=== PATIENT | male | born 1970 | race Caucasian/White ===

== ENCOUNTER 2020-03-12 13:10 | Emergency (ER) | payer OTHER, SELFPAY ==
[2020-03-12 13:18] VITALS: BP 113/74; PULSE 114; RESP 16; TEMP 37.4; O2SAT 98
--- NOTE | 2020-03-12 13:22 | ED.UPPEXIN ---
HPI - Extremity Injury (Upper) General Chief Complaint: Extremity Injury, Upper Stated Complaint: right elbow pain Time Seen by Provider: 03/12/20 13:30 Source: patient and RN notes reviewed Mode of arrival: ambulatory Limitations: no limitations History of Present Illness HPI narrative: 49-year-old male presents with concern for right elbow pain. Reports pain for approximately 5 weeks. Reports pain started several days after arm wrestling with his children. Reports he had a bad dream, fell out of bed landing on the elbow causing worsening pain. Reports the pain goes down his arm, can be aggravated by gripping and bending his elbow. Reports has been using ibuprofen with some relief. MD complaint: injury to: right and elbow Other Extremity Injury: Right: elbow Review of Systems Review of Systems: Narrative: CONSTITUTIONAL: Denies malaise, chills, sweats, or fever. CARDIOVASCULAR: Denies chest pain, palpitations, or edema. RESPIRATORY: Denies cough or dyspnea. SKIN: Denies swelling or bruising MUSCULOSKELETAL: Reports right elbow pain radiates down the right arm NEUROLOGIC: Denies numbness, weakness. All systems reviewed & are unremarkable except as noted in HPI and below PMFSH Comments At time of signature, agree with nursing past medical, surgical, social and family history. There is no relevant family history pertinent to the presenting complaint Exam Narrative: Exam Narrative: GENERAL: Well-appearing, well-nourished, and in no acute distress. HEAD: Normocephalic, atraumatic. EYES: PERRLA, conjunctivae clear NECK: Supple. CHEST: Speaks in full sentences. No respiratory distress. HEART: Regular rate and rhythm. Normal and equal peripheral pulses. EXTREMITIES: Right elbow has normal strength and sensation, no edema, normal range of motion. 5/5 strength with elbow flexion and extension. Normal sensation with sensitivity to light touch and pain. No open wounds, no skin tenting, no devitalized tissue or atrophy, no trophic changes, no ecchymosis, no obvious deformity, alignment normal, mild lateral elbow tenderness, nearby joints and structures intact. Distal pulses palpable and equal bilaterally, skin warm, dry, pink. Capillary refill less than 3 seconds. SKIN: Warm, dry, no rash. NEURO: Alert and oriented x3. PSYCH: Normal mood and affect Course Course Emergency Course: Patient is aware of diagnosis, understands and agrees to treatment plan. Anticipatory guidance given. Patient agrees to follow-up as directed and is aware of reasons to seek care at the emergency department. Portions of this record may have been created with voice recognition software Vital Signs Vital signs: Vital Signs Temperature 99.3 F 03/12/20 13:18 Pulse Rate 114 H 03/12/20 13:18 Respiratory Rate 16 03/12/20 13:18 Blood Pressure 113/74 03/12/20 13:18 Pulse Oximetry 98 03/12/20 13:18 Temperature 99.3 F 03/12/20 13:18 Pulse Rate 114 H 03/12/20 13:18 Respiratory Rate 16 03/12/20 13:18 Blood Pressure 113/74 03/12/20 13:18 Pulse Oximetry 98 03/12/20 13:18 Reviewed. MDM - Extremity Injury (Upper) MDM Narrative Medical decision making narrative: Patients injury and pain is consistent with musculoskeletal etiology. No signs of neurological or vascular compromise on exam. Compartments and tissues are soft without signs of compartment syndrome. Pain is felt appropriate for further evaluation on an outpatient basis. Critical Care Time Critical Care Time Critical Care Time: No Discharge Plan Discharge Clinical Impression: Epicondylitis, lateral, right Patient Disposition: Home, Self-Care Condition: Stable Instructions: Tennis Elbow (ED) Additional Instructions: Avoid activities that cause pain until the pain subsides. Ice to the area 20-30 minutes 4-6 times a day Tennis elbow strap as directed for 14-21 days Tylenol for lesser pain Ibuprofen regularly for the next 2-3 days for the inflammation Follow up
== END 2020-03-12 13:43 | disposition home or self-care (01) ==
PROVIDERS: Emergency Provider Nurse Practitioner; PCP Internal Medicine
DX: M77.11 Lateral epicondylitis, right elbow (principal)
CPT/HCPCS: 99212; A4565; G0463

== ENCOUNTER 2022-07-16 13:09 | Emergency (ER) | payer OTHER, SELFPAY ==
--- NOTE | ~2022-07-16 | XR_ITS ---
EXAMINATION: XR ribs RT 2V w CXR 2V DATE: 07/16/2022 13:44 INDICATION: Right flank pain. TECHNIQUE: Frontal and lateral views of the chest and 2 views on 4 radiographs of the right ribs were obtained. COMPARISON: None. FINDINGS: CHEST TWO VIEWS: The chest demonstrates clear lungs without pneumonia, pleural effusion, or pneumotho rax. The heart size is normal. RIGHT RIBS: There is no rib fracture. IMPRESSION: 1. No rib fracture. Reviewed, dictated and finalized at location A. IMPRESSION: 1. No rib fracture.
--- NOTE | 2022-07-16 13:19 | ED.BACK ---
HPI - Back Pain/Injury General Chief Complaint: Back Pain/Injury Stated Complaint: Right Flank Pain Time Seen by Provider: 07/16/22 13:12 Source: patient Mode of arrival: ambulatory Limitations: no limitations History of Present Illness HPI Narrative: Mr. Bassett is a 51 year old male patient presenting to the clinic today with c/o rib pain that radiates into his back x 1 week. He denies any known injury. Has non-productive cough. Current tobacco user. No fever, chills, fatigue, or weight loss recently. Pain is sharp and increases when he takes a deep breath. Related Data Allergies Allergy/AdvReac Type Severity Reaction Status Date / Time No Known Allergies Allergy Verified 07/16/22 13:23 Review of Systems Review of Systems: Pertinent positives per HPI. Patient denies any fever, chills, rash, headache, visual changes, dizziness, cough, runny nose, sore throat, shortness of breath, chest pain, palpitations, nausea, vomiting, diarrhea, constipation, abdominal pain, or any urinary issues. PMFSH Comments At the time of my signature, I reviewed and agree with the nursing past medical, surgical, social, and family history. There is no relevant family history pertinent to the patient complaint. Exam Narrative: General: Well-developed, well nourished, in no apparent distress Head: Normocephalic, atraumatic. Chest: Normal appearance, and even rise and fall of chest wall with respirations, no bruising or swelling noted, tender with light palpation over the right anterior, lateral, and posterior ribs just below the nipple line Cardio: Regular rate and rhythm, s1 and s2 normal, no murmur appreciated. Resp: Clear to auscultation bilaterally, no rhonchi, rales, wheezing or rubs. Integumentary: [place], warm, and dry, intact without lesion, no rashes. Course Course Emergency Course: Portions of this record may have been created with voice recognition software. Level of Care: Express Care Visit Vital Signs Vital signs: Vital signs reviewed MDM - Back Pain/Injury MDM Narrative Medical decision making narrative: At the time of visit patient is resting comfortably on the exam table. Chest x-ray with unilateral ribs obtained and was negative for any sign of pneumonia or rib fracture. I suspect the patient has acute chest wall pain. Supportive measures were discussed with the patient he voiced understanding of discharge instructions and agrees to treatment plan. Differential Diagnosis Differential diagnosis: Likely other (Chest wall pain, herpes zoster, rib pain, pleurisy, pneumonia) Imaging Data Radiologist's impression: [facility] [address] [place] [address] XRay Report Signed Patient: Emmanuel Bassett : 1970 MR#: [id number] Age/Sex: 51 / M Acct:[id number] Loc: [facility]? ? ADM Date: 07/16/22Attending Dr: Ordering Physician: Gt Dorsey APRN Date of Service: 07/16/22 Procedure(s): XR ribs RT w PA/LAT CXR Accession Number(s): [id number] cc: Gt Dorsey APRN; Mandie, Emmanuel TORRE~ EXAMINATION: XR ribs RT 2V w CXR 2V DATE: 07/16/2022 13:44 INDICATION: Right flank pain. TECHNIQUE: Frontal and lateral views of the chest and 2 views on 4 radiographs of the right ribs were obtained. COMPARISON: None. FINDINGS: CHEST TWO VIEWS: The chest demonstrates clear lungs without pneumonia, pleural effusion, or pneumothorax. The heart size is normal. RIGHT RIBS: There is no rib fracture. IMPRESSION: 1. No rib fracture. Reviewed, dictated and finalized at location A. Dictated By:? Virgil Archibald MD? 07/16/22 1345 Signed By:? ? <Electronically signed by? Virgil Archibald MD in OV> 07/16/22 1346 Discharge Plan Discharge Clinical Impression: Acute chest wall pain Patient Dispo
[2022-07-16 13:25] VITALS: BP 133/78; PULSE 105; RESP 20; TEMP 37.1; O2SAT 99
== END 2022-07-16 13:55 | disposition home or self-care (01) ==
PROVIDERS: Emergency Provider Nurse Practitioner Family; PCP Physician Assistant
DX: R07.89 Other chest pain (principal); F17.290 Nicotine dependence, other tobacco product, uncomplicated; Z86.16 Personal history of COVID-19
CPT/HCPCS: 71046; 71100; 99213; G0463

== ENCOUNTER 2022-12-08 16:31 | Emergency (ER) | payer OTHER, SELFPAY ==
[2022-12-08 16:36] VITALS: BP 144/93; PULSE 87; RESP 16; TEMP 36.4; O2SAT 98
--- NOTE | 2022-12-08 16:59 | ED.GENADULT ---
HPI - General Adult General Chief complaint: Skin/Abscess/Foreign Body Stated complaint: Skin Sore/Lip Source: patient Mode of arrival: ambulatory Limitations: no limitations History of Present Illness HPI narrative: Patient presents for evaluation of a lesion to the left for approximately 1 month. He states he was cleaning the area with alcohol and had some improvement initially with recurrence thereafter. He states that the lesion is painful. He has never had any herpetic lesions in the past. He smokes 1 pack per day at the present time, down from 2 packs per day. No fever, chills, nausea vomiting, purulence from the affected area. He is wondering if he needs to see a lead investigator. Related Data Allergies Allergy/AdvReac Type Severity Reaction Status Date / Time No Known Allergies Allergy Verified 07/16/22 13:23 Review of Systems Review of Systems: CONSTITUTIONAL: Denies fever, chills, or sweats. EYES: Denies visual changes, redness, or discharge. ENT: Reports painful lesion to the lower lip. Denies rhinorrhea, congestion, sore throat, or otalgia. CARDIOVASCULAR: Denies chest pain, palpitations, or edema. RESPIRATORY: Denies cough or dyspnea. GASTROINTESTINAL: Denies abdominal pain, nausea, vomiting, or diarrhea. GENITOURINARY: Denies dysuria or hematuria. SKIN: Denies rash or itching. MUSCULOSKELETAL: Denies back pain, joint pain, or myalgia. NEUROLOGIC: Denies headache, numbness, dizziness, or weakness. PSYCHIATRIC: Denies anxiety or depression. PMFSH Past Medical History Medical History Tobacco use Surgical History Surgical History No pertinent past surgical history Family History Family History Mother Family history non-contributory Social History Social History Smoking packs per day: 1 Smoking cigarettes per day: 20.0 Smoking status: Current every day smoker Living arrangements: with family Gender identity (if verbalized by the patient): Male Sexual Orientation (if Verbalized by the Patient): Straight or Heterosexual Spiritual care concerns: No Exam Narrative: GENERAL: Well-appearing, well-nourished, and in no acute distress. HEAD: Normocephalic, atraumatic. EYES: PERRLA and EOMI. ENT: Nares clear, no rhinorrhea or epistaxis. Mucous membranes moist. There is a 5 x 2 mm lesion to the lower lip which is somewhat irregularly shaped with black pigmentation noted. Oropharynx without tonsillar hypertrophy exudate. Bilateral TMs pearly llamas nonbulging NECK: Supple. No adenopathy or masses. No carotid bruits or JVD CHEST: Clear to auscultation. No respiratory distress. No wheezes rales or rhonchi HEART: Regular rate and rhythm. No murmur heard. Normal peripheral pulses. ABDOMEN: Soft, nontender, nondistended, normal active bowel sounds. EXTREMITIES: Normal range of motion. No edema. SKIN: Warm, dry, no rash. NEURO: No focal deficits. Alert and oriented x3. PSYCH: Normal mood and affect. Course Course Emergency Course: This is a 51-year-old male who presented for evaluation of a lesion to the lower lip. I am concerned this may be a malignant lesion. I advised he contact his primary care provider to receive referral to see either Dermatology or an oral surgeon to have a biopsy of the lesion. Advised he not smoke. He may take ibuprofen for pain. Follow-up with primary provider. Go to the ER for difficulty breathing or swelling. Patient in agreement with plan care. Level of Care: Express Care Visit Vital Signs Vital signs: Vital Signs Temperature 36.4 C L 12/08/22 16:36 Pulse Rate 87 12/08/22 16:36 Respiratory Rate 16 12/08/22 16:36 Blood Pressure 144/93 H 12/08/22 16:36 Pulse Oximetry 98 12/08/22 16:36 Oxygen Delivery Room Air 12/08/22 16:36 Temperature 36.4 C L 12/08/22
== END 2022-12-08 17:01 | disposition home or self-care (01) ==
PROVIDERS: Emergency Provider Nurse Practitioner; PCP Physician Assistant
DX: K13.0 Diseases of lips (principal); F17.210 Nicotine dependence, cigarettes, uncomplicated
CPT/HCPCS: 99211; G0463

== ENCOUNTER 2023-01-24 14:07 | Emergency (ER) | payer OTHER, SELFPAY ==
--- NOTE | ~2023-01-24 | XR_ITS ---
EXAMINATION: XR chest 2V DATE: 01/24/2023 14:36 INDICATION: Cough TECHNIQUE: PA and lateral views of the chest are obtained. COMPARISON: 07/16/2022 FINDINGS: There are patchy opacities throughout all lung zones, worst in the right midlung zone. No p leural effusion or pneumothorax. The cardiomediastinal silhouette is normal. There is mild thoracic s pondylosis. IMPRESSION: 1. Diffuse lung disease, worst in the right midlung zone, likely multifocal pneumonia. Reviewed, dictated and finalized at location F. IMPRESSION: 1. Diffuse lung disease, worst in the right midlung zone, likely multifocal pne umonia.
[2023-01-24 14:14] VITALS: BP 149/88; PULSE 101; RESP 20; TEMP 37.1; O2SAT 97
--- NOTE | 2023-01-24 15:07 | ED.GENADULT ---
HPI - General Adult General Chief complaint: Upper Respiratory Infection Stated complaint: Cough/Chest Congestion Source: patient Mode of arrival: ambulatory Limitations: no limitations History of Present Illness HPI narrative: PATIENT PRESENTS FOR EVALUATION OF SICK SYMPTOMS FOR LAST 3 DAYS SYMPTOMS INCLUDE COUGH, SHORTNESS OF BREATH, SORE THROAT, PLEURITIC CHEST PAIN, FEVER, FATIGUE, SORE THROAT SECONDARY TO COUGHING, NAUSEA, VOMITING, DIARRHEA. HIS HAS SIMILAR SYMPTOMS AT THE PRESENT TIME. SHE IS TAKING TESSALON PERLES. HE TOOK SOME OF HIS 'S SUPPLY FOR HIS SYMPTOMS. HE TYPICALLY SMOKES ABOUT 1.5 PACKS PER DAY BUT HAS BEEN UNABLE TO SMOKE FOR THE LAST 2 DAYS. I RECENTLY SAW HIM HERE FOR A LIP LESION AND ADVISED TO FOLLOW UP WITH PRIMARY PROVIDER. HE IS SEEING A SURGEON THIS WEEK TO HAVE LESION EXCISED. NO ADDITIONAL COMPLAINTS OR CONCERNS. Related Data Allergies Allergy/AdvReac Type Severity Reaction Status Date / Time No Known Allergies Allergy Verified 01/24/23 14:18 Review of Systems Review of Systems: CONSTITUTIONAL: REPORTS FEVER. DENIES CHILLS, OR SWEATS. EYES: DENIES VISUAL CHANGES, REDNESS, OR DISCHARGE. ENT:REPORTS SORE THROAT. REPORTS LIP LESION. DENIES RHINORRHEA, CONGESTION, OR OTALGIA. CARDIOVASCULAR: REPORTS PLEURITIC CHEST PAIN. DENIES CHEST PAIN OTHERWISE. DENIES PALPITATIONS, OR EDEMA. RESPIRATORY: REPORTS COUGH AND SOB GASTROINTESTINAL: REPORTS NAUSEA, VOMITING AND DIARRHEA. DENIES ABDOMINAL PAIN GENITOURINARY: DENIES DYSURIA OR HEMATURIA. SKIN: DENIES RASH OR ITCHING. MUSCULOSKELETAL: DENIES BACK PAIN, JOINT PAIN, OR MYALGIA. NEUROLOGIC: DENIES HEADACHE, NUMBNESS, DIZZINESS, OR WEAKNESS. PSYCHIATRIC: DENIES ANXIETY OR DEPRESSION. [facility], [facility] Past Medical History Medical History Tobacco use Surgical History Surgical History No pertinent past surgical history Family History Family History Mother Family history non-contributory Social History Social History Smoking packs per day: 1.5 Smoking cigarettes per day: 30.0 Smoking status: Current every day smoker Substance use: never Living arrangements: with family Gender identity (if verbalized by the patient): Male Sexual Orientation (if Verbalized by the Patient): Straight or Heterosexual Spiritual care concerns: No Exam Narrative: GENERAL: WELL-APPEARING, WELL-NOURISHED, AND IN NO ACUTE DISTRESS. HEAD: NORMOCEPHALIC, ATRAUMATIC. EYES: PERRLA AND EOMI. ENT: NARES CLEAR, NO RHINORRHEA OR EPISTAXIS. MUCOUS MEMBRANES MOIST. THERE IS A NECROTIZING LESION TO THE LEFT LOWER LIP. OROPHARYNX WITHOUT TONSILLAR HYPERTROPHY OR EXUDATE. BILATERAL TMS PEARLY MCKINLEY NONBULGING NECK: SUPPLE. NO ADENOPATHY OR MASSES. NO CAROTID BRUITS OR JVD CHEST: COUGH PRESENT ON EXAM. CLEAR TO AUSCULTATION. NO RESPIRATORY DISTRESS. NO WHEEZES RALES OR RHONCHI HEART: REGULAR RATE AND RHYTHM. NO MURMUR HEARD. NORMAL PERIPHERAL PULSES. ABDOMEN: SOFT, NONTENDER, NONDISTENDED, NORMAL ACTIVE BOWEL SOUNDS. EXTREMITIES: NORMAL RANGE OF MOTION. NO EDEMA. SKIN: WARM, DRY, NO RASH. NEURO: NO FOCAL DEFICITS. ALERT AND ORIENTED X3. PSYCH: NORMAL MOOD AND AFFECT. Course Course Emergency Course: THIS IS A 52-YEAR-OLD MALE THAT PRESENTED FOR EVALUATION OF SICK SYMPTOMS. STREP, COVID, INFLUENZA WERE NEGATIVE. CHEST X-RAY CONCERNING FOR PNEUMONIA. SATURATIONS NORMAL SO WE CAN MANAGE HIM OUTPATIENT WITH AZITHROMYCIN, AMOXICILLIN, PREDNISONE, PROAIR, AND MUCINEX. FOLLOW UP THIS WEEK FOR FURTHER EVALUATION AND TREATMENT. GO TO ER FOR WORSENING SYMPTOMS. PT IN AGREEMENT WITH PLAN OF CARE. Level of Care: Express Care Visit Vital Signs Vital signs: Vital Signs Temperature 37.1 C 01/24/23 14:14 Pulse Rate 101 H 01/24/23 14:14 Respiratory Rate 20
== END 2023-01-24 15:10 | disposition home or self-care (01) ==
PROVIDERS: Emergency Provider Nurse Practitioner; PCP Physician Assistant
DX: J18.9 Pneumonia, unspecified organism (principal); Z20.822 Contact with and (suspected) exposure to COVID-19; F17.210 Nicotine dependence, cigarettes, uncomplicated
CPT/HCPCS: 71046; 87081; 87426; 87804; 87880; 99213; C9803; G0463

== ENCOUNTER 2023-01-28 00:58 | Emergency (ER) | payer OTHER, SELFPAY ==
--- NOTE | ~2023-01-28 | XR_ITS ---
Portable chest x-ray Comparison: 01/24/2023 Clinical History: Pneumonia Findings: Right upper lobe pneumonia is improved. No pleural effusion or pneumothorax. Cardiomedias tinal silhouette is stable. Bones and soft tissues are unremarkable. Impression: Marked interval improvement in right upper lobe pneumonia since prior exam. Reviewed, dictated and finalized at location . Impression: Marked interval improvement in right upper lobe pneumonia since prior exam.
--- NOTE | 2023-01-28 01:17 | ED.GENADULT ---
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 the patient appears to have a biopsy of the lower lip with 1.5 cm ulcer. The bleeding was emanating from the ulcer. Firm pressure was applied on the bleeder along with compression of the lower lip following which the bleeding slowed down. Four sutures replaced over the bleeder to control the arterial spurting. The patient is scheduled to see an ENT surgeon for resection of the cancer. -- Nonproductive cough Onset (ago): minute(s) ( started 30 minutes ago) Location: face ( bleeding from the lower lip ulceration) Severity: severe Relieving factors: none Exacerbating factors: none Associated symptoms: cough and shortness of breath Treatments prior to arrival: none Related Data Allergies Allergy/AdvReac Type Severity Reaction Status Date / Time No Known Allergies Allergy Verified 01/28/23 01:19 Review of Systems Review of Systems: All systems reviewed & are unremarkable except as noted in HPI and below Constitutional: Constitutional: Reports as per HPI and Reports no additional constitutional complaints Eyes: Eyes: Reports as per HPI and Reports no additional eye complaints ENT: Reports system reviewed and no additional complaints, except as documented and Reports as per HPI Comments: Patient is very hard of hearing. He normally uses hearing aids. Bleeding from the lower lip ulceration. Cardiovascular: Cardiovascular: Reports as per HPI and Reports no additional cardiovascular complaints Respiratory: Respiratory: Reports as per HPI, Reports cough and Reports dyspnea Gastrointestinal: Gastrointestinal: Reports as per HPI and Reports no additional gastrointestinal complaints Genitourinary: Genitourinary: Reports no additional male genitourinary complaints and Reports as per HPI Musculoskeletal: Musculoskeletal: Reports no additional musculoskeletal complaints and Reports as per HPI Integumentary/Breasts: Skin/Breast: Reports system reviewed and no additional complaints, except as docu and Reports as per HPI Neurologic: Reports system reviewed and no additional complaints, except as documented and Reports as per HPI Psychiatric: Psychiatric: Reports no additional psychiatric complaints and Reports as per HPI Endocrine: Endocrine: Reports no additional endocrine complaints and Reports as per HPI Hematologic/Lymphatic: Hematologic/Lymphatic: Reports no additional hematologic/lymphatic complaints and Reports as per HPI Allergic/Immunologic: Allergic/Immunologic: Reports no additional allergic/immunologic complaints and Reports as per HPI [facility] Past Medical History Medical History Bilateral pneumonia Lip cancer Tobacco use Surgical History Surgical History No pertinent past surgical history Family History Family History Mother Family history non-contributory Social History Social History Smoking packs per day: 1.5 Smoking cigarettes per day: 30.0 Smoking status: Current every day smoker Substance use: never Living arrangements: with family Gender identity (if verbalized by the patient): Male Sexual Orientation (if Verbalized by the Patient): Straight or Heterosexual Spiritual care concerns: No Exam Const: General: ill appearing Orientation/consciousness: patient oriented x3 Limitations: no limitations HENMT: Head: normal to inspection Ears: external ears normal
[2023-01-28 01:19] VITALS: BP 152/96; PULSE 112; RESP 16; TEMP 36.9; O2SAT 95
[2023-01-28 01:40] LABS: Hematocrit 37.9 % (40.0-54.0); Hemoglobin 13.2 g/dL (14.0-18.0); Mean Corpuscular HGB Conc 34.8 g/dL (32.0-36.0); Mean Corpuscular Hemoglobin 31.5 pg (27.0-31.0); Mean Corpuscular Volume 90.5 fL (78.0-102.0); Mean Platelet Volume 8.2 fl (8.7-11.0); Platelet Count Result 448 K/mm3 (150-420); Red Blood Count 4.19 M/mm3 (4.70-6.10); Red Cell Distribution Width 11.9 % (11.6-14.4); White Blood Count 13.5 K/mm3 (4.8-10.8)
[2023-01-28 01:55] LABS: Partial Thromboplastin Time 26.1 SEC (23.90-30.70); Prothrombin Time 11.1 Seconds (9.50-12.10)
[2023-01-28 01:57] LABS: Alanine Aminotransferase 65 U/L (16-63); Albumin Level 2.7 g/dL (3.4-5.0); Alkaline Phosphatase 67 U/L (46-116); Anion Gap 8 mmol/L (8-16); Aspartate Amino Transferase 44 U/L (15-37); Bilirubin,Total 0.2 mg/dL (0.00-1.00); Blood Urea Nitrogen 6 mg/dL (7-18); Calcium 8.6 mg/dL (8.5-10.1); Carbon Dioxide 30 mmol/L (21-32); Chloride 93 mmol/L (98-108); Estimated CRCL calculation 98 ml/min; Estimated Glomerular Filt Rate > 60; Glucose 168 mg/dL (70-99); Osmolality Calculated 273 mOsm/kg (285-295); Potassium 4.5 mmol/L (3.5-5.1); Sodium 131 mmol/L (136-145); Total Protein 7.6 g/dL (6.4-8.2)
[2023-01-28 01:58] LABS: Band Neutrophils Percent 2 % (0-6); Basophils Percent Manual 0 % (0-1); Eosinophils Absolute Manual 0.13 K/mm3 (0.02-0.5); Eosinophils Percent Manual 1 % (1-6); Lymphocytes Absolute Manual 2.97 K/mm3 (1.1-4.5); Lymphocytes Percent Manual 22 % (18-44); Monocytes Absolute Manual 1.35 K/mm3 (0.1-0.90); Monocytes Percent Manual 10 % (3-9); Neutrophils Absolute Manual 9.04 K/mm3 (1.3-6.7); Neutrophils Percent Manual 65 % (46-73); Platelet Estimate Adequate (Adequate); Total Cells Counted 100
[2023-01-28] MEDS: levoFLOXacin 500 MG TABLET 750 MG PO (02:00)
[2023-01-28 02:19] VITALS: BP 111/66; PULSE 91; RESP 18; TEMP 37.1; O2SAT 96
== END 2023-01-28 02:22 | disposition home or self-care (01) ==
PROVIDERS: Emergency Provider Internal Medicine Critical Care Medicine; PCP Physician Assistant
DX: C00.9 Malignant neoplasm of lip, unspecified (principal); J18.9 Pneumonia, unspecified organism; R74.01 Elevation of levels of liver transaminase levels; L98.499 Non-pressure chronic ulcer of skin of other sites with unspecified severity; F17.210 Nicotine dependence, cigarettes, uncomplicated
CPT/HCPCS: 12011; 36415; 71045; 80053; 85025; 85610; 85730; 99283; A9270

== ENCOUNTER 2023-07-31 18:42 | Emergency (ER) | payer OTHER, SELFPAY ==
--- NOTE | ~2023-07-31 | CT_ITS ---
EXAMINATION: CT abdomen pelvis w con DATE: 07/31/2023 19:56 INDICATION: Upper abdominal pain TECHNIQUE: Computed tomography (CT) of the abdomen and pelvis was performed with 100 mL Omnipaque-350 intravenous contrast. Automated exposure control and iterative reconstruction technique were employe d. The dose-length product was 708.68 mGy-cm. COMPARISON: None FINDINGS: Lung bases are clear. Heart size is normal. Small amount of atherosclerotic coronary artery calcific location along the right coronary artery. No pericardial or pleural effusion. Liver, gallbladder, spl een, bilateral adrenal glands and kidneys are normal. Bladder is normal. There is subtle stranding ab out the uncinate process of the pancreas raising concern for acute interstitial pancreatitis. Pancrea s otherwise unremarkable with homogeneous enhancement. No peripancreatic fluid collections. Bowels ar e normal including a normal gas-filled appendix. Prostatomegaly. No free intraperitoneal gas or fluid . No pathologically enlarged abdominal or pelvic lymphadenopathy. Mild scattered degenerative skeleta l changes. IMPRESSION: 1. Subtle stranding about the uncinate process of the pancreas which raise concern for acute intersti tial pancreatitis. Correlate with lipase levels. Reviewed, dictated and finalized at location A. IMPRESSION: 1. Subtle stranding about the uncinate process of the pancreas which raise conc cipriano for acute interstitial pancreatitis. Correlate with lipase levels.
[2023-07-31 18:52] VITALS: BP 153/103; PULSE 104; RESP 18; TEMP 36.4; O2SAT 97
--- NOTE | 2023-07-31 19:04 | ECG_ITS ---
Measurements Intervals [place] Rate: 79 P: 65 [place]: 132 QRS: 72 QRSD: 89 T: 69 QT: 393 QTc: 452 Interpretive Statements SINUS RHYTHM BORDERLINE T WAVE ABNORMALITY- ANTERIOR LEADS BASELINE ARTIFACT- V4-V6 BORDERLINE ECG NO PREVIOUS ECG AVAILABLE FOR COMPARISON Electronically Signed On 08-01-2023 6:58:51 NET DEVELOPER PROGRAMMER by Neto Banegas D.O.
[2023-07-31] MEDS: ONDANSETRON INJ 4 MG/2 ML VIAL IV PUSH (19:11)
[2023-07-31] MEDS: SODIUM CHLORIDE 0.9% IV 1,000 ML 999 ML IV CONT (19:12)
[2023-07-31 19:15] LABS: Basophils Absolute Auto 0.03 K/mm3 (0.00-0.10); Basophils Percent Auto 0.3 % (0.0-1.0); Eosinophils Absolute Auto 0.06 K/mm3 (0.02-0.50); Eosinophils Percent Auto 0.5 % (1.0-6.0); Hematocrit 42.7 % (40.0-54.0); Hemoglobin 14.7 g/dL (14.0-18.0); Immature Granulocyte Absolute 0.05 K/mm3 (0.00-0.00); Immature Granulocyte Percent A 0.4 % (0.0-0.0); Lymphocytes Absolute Auto 2.83 K/mm3 (1.10-4.50); Mean Corpuscular HGB Conc 34.4 g/dL (32.0-36.0); Mean Corpuscular Hemoglobin 32.2 pg (27.0-31.0); Mean Corpuscular Volume 93.6 fL (78.0-102.0); Mean Platelet Volume 8.5 fl (8.7-11.0); Monocytes Absolute Auto 0.97 K/mm3 (0.10-0.90); Monocytes Percent Auto 8.6 % (2.0-11.0); Neutrophils Absolute Auto 7.4 K/mm3 (1.7-7.2); Neutrophils Percent Auto 65.2 % (50.0-70.0); Platelet Count Result 287 K/mm3 (150-420); Red Blood Count 4.56 M/mm3 (4.70-6.10); Red Cell Distribution Width 12.5 % (11.6-14.4); White Blood Count 11.3 K/mm3 (4.8-10.8)
[2023-07-31 19:23] LABS: Appearance Urine Clear (Clear); Bilirubin Urine Negative (Negative); Blood Urine Negative (Negative); Color Urine Light Yellow (Yellow); Glucose Urine UA Negative (Negative); Ketones Urine Negative (Negative); Nitrate Urine Negative (Negative); Protein Urine Negative (Negative); Urobilinogen Urine 0.2 mg/dL (0.2-1.0); pH Urine 7.5 (5.0-8.0)
[2023-07-31] MEDS: KETOROLAC 30 MG/ML VIAL (*BKC) IV PUSH (19:24)
[2023-07-31 19:25] LABS: Leukocyte Esterase Ur Negative LEU/UL (Negative)
[2023-07-31 19:26] LABS: Add Urine Microscopic? NO
[2023-07-31 19:27] LABS: Partial Thromboplastin Time 28.9 SEC (23.90-30.70); Prothrombin Time 10.9 Seconds (9.50-12.10)
[2023-07-31 19:32] LABS: Alanine Aminotransferase 22 U/L (16-63); Albumin Level 3.3 g/dL (3.4-5.0); Alkaline Phosphatase 80 U/L (46-116); Anion Gap 10 mmol/L (8-16); Aspartate Amino Transferase 21 U/L (15-37); Bilirubin,Total 0.3 mg/dL (0.00-1.00); Blood Urea Nitrogen 5 mg/dL (7-18); Calcium 8.7 mg/dL (8.5-10.1); Carbon Dioxide 29 mmol/L (21-32); Chloride 92 mmol/L (98-108); Estimated CRCL calculation 111 ml/min; Estimated Glomerular Filt Rate > 60; Glucose 91 mg/dL (70-99); Lipase 61 U/L (16-77); Osmolality Calculated 269 mOsm/kg (285-295); Sodium 131 mmol/L (136-145); Troponin I 5.8 ng/L (0.00-60.4)
[2023-07-31 19:34] LABS: Lactic Acid Reflex 1.5 mmol/L (0.4-2.0)
[2023-07-31 20:06] VITALS: BP 125/94; PULSE 89; RESP 20; O2SAT 98
--- NOTE | 2023-07-31 20:20 | ED.ABDPAIN ---
HPI - Abdominal Pain General Chief Complaint: Abdominal Pain Stated Complaint: abdominal pain Source: patient Mode of arrival: ambulatory Limitations: no limitations History of Present Illness HPI narrative: patient here today with pain periumbilical but localizes into the left upper quadrant started over the past couple days there is no fever chills does have nausea with no vomiting no diarrhea constipation no flank pain no dysuria or hematuria. Patient does drink Alcohol. MD elicited complaint: abdominal pain Location: periumbilical and LUQ Related Data Allergies Allergy/AdvReac Type Severity Reaction Status Date / Time No Known Allergies Allergy Verified 01/28/23 01:19 Review of Systems Review of Systems: All systems reviewed & are unremarkable except as noted in HPI and below PMFSH Past Medical History Medical History Bilateral pneumonia Lip cancer Tobacco use Surgical History Surgical History No pertinent past surgical history Family History Family History Mother Family history non-contributory Social History Social History Smoking packs per day: 1.5 Smoking cigarettes per day: 30.0 Smoking status: Current every day smoker Substance use: never Living arrangements: with family Gender identity (if verbalized by the patient): Male Sexual Orientation (if Verbalized by the Patient): Straight or Heterosexual Spiritual care concerns: No Exam Const: General: no acute distress Nutritional Appearance: well nourished Orientation/consciousness: patient oriented x3 Limitations: no limitations Eyes: Conjunctivae: conjunctivae normal Pupils: Equal, round and reactive pupils present Neck: Neck: normal visual inspection Chest: Chest palpation & inspection: normal inspection of the chest Resp: Effort & Inspection: normal respiratory effort Auscultation: clear to auscultation bilaterally Cardio: Rate: regular rate Rhythm: regular rhythm GI: GI Palp: Yes Soft to palpation and Yes Tenderness to palpation present (GI) Auscultation: normal bowel sounds : General: Yes bladder normal to palpation Urinary Catheter: Urinary Catheter: patent and draining Back/Spine/Pelvis: Back: no CVA tenderness Skin: General skin exam: normal color Rashes: no rashes Wounds: no wounds Neuro: General: patient oriented x3 and moves all extremities Extrem: General: normal to inspection and no clubbing, cyanosis or edema Psych: Mental Status: mental status grossly normal Affect: normal affect Course Course Emergency Course: Patient blood work reviewed his sodium level was 131, lipase within normal limits, patient's vitals were stable, patient received IV fluids and 30mg IV Toradol his pain level went from a 10 down to a 3. Patient does have a history of alcohol use, with a normal lipase, CT scan shows acute pancreatitis with normal lipase afebrile. Vital Signs Vital signs: Vital Signs Temperature 36.4 C 07/31/23 18:52 Pulse Rate 104 H 07/31/23 18:52 Respiratory Rate 18 07/31/23 18:52 Blood Pressure 153/103 H 07/31/23 18:52 Pulse Oximetry 97 07/31/23 18:52 Oxygen Delivery Room Air 07/31/23 18:52 Temperature 36.4 C 07/31/23 18:52 Pulse Rate 89 07/31/23 20:06 Respiratory Rate 20 07/31/23 20:06 Blood Pressure 125/94 H 07/31/23 20:06 Pulse Oximetry 98 07/31/23 20:06 Oxygen Delivery Room Air 07/31/23 20:06 MDM - Abdominal Pain Lab Data 07/31/23 19:10 07/31/23 19:10 Labs: Lab Results 07/31/23 07/31/23 Range/Units 19:10 19:15 WBC 11.3 H (4.8-10.8) K/mm3 RBC 4.56 L (4.70-6.10) M/mm3 Hgb 14.7 (14.0-18.0) g/dL Hct 42.7 (40.0-54.0) % MCV 93.6 (78.0-102.0) fL MCH 32.2 H (27.0-31.0) pg MCHC 34.4 (32.0-36.0) g/dL RDW
[2023-07-31 20:48] VITALS: BP 144/98; PULSE 88; RESP 18; TEMP 36.8; O2SAT 97
== END 2023-07-31 20:48 | disposition home or self-care (01) ==
PROVIDERS: Emergency Provider Emergency Medicine; PCP Physician Assistant
DX: K85.90 Acute pancreatitis without necrosis or infection, unspecified (principal)
CPT/HCPCS: 36415; 74177; 80053; 81003; 83605; 83690; 84484; 85025; 85610; 85730; 93005; 96361; 96374; 96375; 99284; J1885; J2405; J7030; Q9967

== ENCOUNTER 2024-01-02 22:13 | Emergency (ER) | payer BC, OTHER, SELFPAY ==
[2024-01-02] VITALS (10 sets, daily range): BP systolic 126–144; BP diastolic 84–93; PULSE 87–92; RESP 14–23; TEMP 36.9; O2SAT 98
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
--- NOTE | 2024-01-02 22:25 | ECG_ITS ---
Measurements Intervals [place] Rate: 84 P: 62 LA: 137 QRS: 69 QRSD: 94 T: 75 QT: 365 AVG RR: 712 QTc: 406 QTCB: 432 QTCF: 408 Interpretive Statements SINUS RHYTHM NORMAL ECG SEE SCANNED COPY FOR SIGNATURE MTDD
--- NOTE | 2024-01-02 22:27 | ED.CHESTPAIN ---
HPI - Chest Pain General Chief Complaint: Chest Pain Stated Complaint: kidney pain;chest pain Time Seen by Provider: 01/02/24 22:19 Source: patient Mode of arrival: ambulatory Limitations: no limitations History of Present Illness HPI narrative: Patient is a 53-year-old male with some right-sided chest pain that is sharp in nature this evening as well as some lower back pain that is been bothering him for over a month. complaint: chest pain Onset (ago): day(s) (1) Timing of current episode: episodic Prior episodes: No Onset: during rest and during exertion Pain location: right chest Pain radiation: none Severity: mild Pain scale (0-10): 2 Quality: sharp Relieving factors: rest Exacerbating factors: palpation and movement Associated symptoms: other ( More of his complaint this evening was lumbar back pain for the past month) Risk Factors Coronary artery disease risk factors: none Thoracic aortic dissection risk factors: none Related Data Allergies Allergy/AdvReac Type Severity Reaction Status Date / Time No Known Allergies Allergy Verified 01/28/23 01:19 Review of Systems Review of Systems: All systems reviewed & are unremarkable except as noted in HPI and below Constitutional: Constitutional: Reports no additional constitutional complaints Eyes: Eyes: Reports no additional eye complaints ENT: Reports system reviewed and no additional complaints, except as documented Cardiovascular: Cardiovascular: Reports no additional cardiovascular complaints Respiratory: Respiratory: Reports no additional respiratory complaints Gastrointestinal: Gastrointestinal: Reports no additional gastrointestinal complaints Genitourinary: Genitourinary: Reports no additional male genitourinary complaints Musculoskeletal: Musculoskeletal: Reports no additional musculoskeletal complaints Integumentary/Breasts: Skin/Breast: Reports system reviewed and no additional complaints, except as docu Neurologic: Reports system reviewed and no additional complaints, except as documented Psychiatric: Psychiatric: Reports no additional psychiatric complaints Endocrine: Endocrine: Reports no additional endocrine complaints Hematologic/Lymphatic: Hematologic/Lymphatic: Reports no additional hematologic/lymphatic complaints Allergic/Immunologic: Allergic/Immunologic: Reports no additional allergic/immunologic complaints PMFSH Past Medical History Medical History Bilateral pneumonia Lip cancer Tobacco use Surgical History Surgical History No pertinent past surgical history Family History Family History Mother Family history non-contributory Social History Social History Smoking packs per day: 1.5 Smoking cigarettes per day: 30.0 Smoking status: Current every day smoker Substance use: never Living arrangements: with family Gender identity (if verbalized by the patient): Male Sexual Orientation (if Verbalized by the Patient): Straight or Heterosexual Spiritual care concerns: No Exam Const: General: healthy appearing Nutritional Appearance: well nourished Orientation/consciousness: patient oriented x3 HENMT: Head: normal to inspection Ears: external ears normal Face/Nose/Sinus: Normal external nose present Eyes: Conjunctivae: conjunctivae normal Pupils: Equal, round and reactive pupils present EOM: EOMs intact bilaterally Neck: Neck: normal visual inspection Chest: Chest palpation & inspection: normal inspection of the chest Resp: Effort & Inspection: normal respiratory effort and not labored Auscultation: clear to auscultation bilaterally and no crackles Cardio: Rate: regular rate Rhythm: regular rhythm Heart sounds: no murmurs Other: tender anterior chest wall to palpation GI: Inspection: non-distended Auscultation: norm
[2024-01-02 22:35] LABS: Basophils Absolute Auto 0.03 K/mm3 (0.00-0.10); Basophils Percent Auto 0.4 % (0.0-1.0); Eosinophils Absolute Auto 0.17 K/mm3 (0.02-0.50); Eosinophils Percent Auto 2.2 % (1.0-6.0); Immature Granulocyte Absolute 0.02 K/mm3 (0.00-0.00); Immature Granulocyte Percent A 0.3 % (0.0-0.0); Lymphocytes Absolute Auto 2.81 K/mm3 (1.10-4.50); Lymphocytes Percent Auto 36.7 % (18.0-42.0); Mean Corpuscular HGB Conc 34.2 g/dL (32-36); Mean Corpuscular Hemoglobin 31.7 pg (27.0-31.0); Mean Corpuscular Volume 92.7 fL (78.0-102.0); Mean Platelet Volume 8.4 fl (8.7-11.0); Monocytes Absolute Auto 0.74 K/mm3 (0.10-0.90); Monocytes Percent Auto 9.7 % (2.0-11.0); Neutrophils Absolute Auto 3.89 K/mm3 (1.70-7.20); Neutrophils Percent Auto 50.7 % (50.0-70.0); Platelet Count Result 276 K/mm3 (150-420); Red Cell Distribution Width 12.5 % (11.6-14.4); White Blood Count 7.7 K/mm3 (4.8-10.8)
[2024-01-02 22:49] LABS: D Dimer 0.25 mg/L (0.19-0.50); Partial Thromboplastin Time 26.7 Sec (23.9-30.70); Prothrombin Time 10.6 Seconds (9.50-12.1)
[2024-01-02 23:01] LABS: Alanine Aminotransferase 31 U/L (16-63); Albumin Level 3.5 g/dL (3.4-5.0); Alkaline Phosphatase 54 U/L (46-116); Anion Gap 11 mmol/L (4-12); Aspartate Amino Transferase 28 U/L (15-37); Bilirubin,Total 0.3 mg/dL (0.00-1.00); Blood Urea Nitrogen 9 mg/dL (7-18); Carbon Dioxide 26 mmol/L (21-32); Chloride 96 mmol/L (98-108); Estimated CRCL calculation 100 ml/min; Estimated Glomerular Filt Rate > 60; Glucose 87 mg/dL (70-99); NT Pro B Type Natriuretic Pept 34 pg/mL (0-125); Osmolality Calculated 273 mOsm/kg (285-295); Potassium 4.2 mmol/L (3.5-5.1); Sodium 133 mmol/L (136-145); Total Protein 6.7 g/dL (6.4-8.2)
[2024-01-02 23:02] LABS: Lipase 64 U/L (16-77); Troponin I 5.3 ng/L (0.00-60.4)
[2024-01-02] MEDS: KETOROLAC 30 MG/ML VIAL (*BKC) IV PUSH (23:39)
[2024-01-02] MEDS: ORPHENADRINE CITRATE 30 MG/ML 2 ML VIAL 60 MG IM (23:40)
[2024-01-03 00:04] VITALS: BP 135/86; PULSE 75; RESP 18; TEMP 36.8; O2SAT 98
== END 2024-01-03 00:04 | disposition home or self-care (01) ==
PROVIDERS: Emergency Provider Emergency Medicine; PCP Physician Assistant
DX: R07.89 Other chest pain (principal); M54.50 Low back pain, unspecified; F17.210 Nicotine dependence, cigarettes, uncomplicated
CPT/HCPCS: 36415; 71045; 80053; 83690; 83880; 84484; 85025; 85380; 85610; 85730; 93005; 96372; 96374; 99284; J1885; J2360

== ENCOUNTER 2024-02-26 14:13 | Emergency (ER) | payer BC, OTHER, SELFPAY ==
[2024-02-26] VITALS (10 sets, daily range): BP systolic 138–158; BP diastolic 97–101; PULSE 67–76; RESP 13–20; TEMP 36.3; O2SAT 97–99
--- NOTE | 2024-02-26 14:21 | ECG_ITS ---
[address] Test Date: 2024-02-26 Pat Name: Emmanuel Bassett Department: Room: Gender: Gerontology Aide: : 1970 Requested By: Rashard Krueger Order Number: [id number] Reading MD: Cash Moss M.D. Measurements Intervals [place] Rate: 69 P: 64 DC: 135 QRS: 69 QRSD: 89 T: 72 QT: 382 QTc: 410 Interpretive Statements SINUS RHYTHM No previous ECG available for comparison Electronically Signed On 02-27-2024 12:04:01 CDT by Cash Moss M.D.
--- NOTE | 2024-02-26 14:22 | ED.ABDPAIN ---
HPI - Abdominal Pain General Chief Complaint: Chest Pain Stated Complaint: abdominal pain Time Seen by Provider: 02/26/24 14:22 Source: patient Mode of arrival: ambulatory Limitations: no limitations History of Present Illness HPI narrative: 53-year-old male, with a history of smoking, alcoholism, the cancer status post resection, chronic low back pain pancreatitis presents to the ER with an 8 hour history of -- epigastric pain which radiates to the back. Pain is rated 9/10. No exacerbating or relieving factors -- nausea without any vomiting. No diarrhea. No fever or chills patient had a couple of Alcoholic drinks today. -- erythematous macules in bilateral lower extremities MD elicited complaint: abdominal pain Pertinent past history: other ( pancreatitis) Onset (ago): hour(s) ( 8 hours) Pain Consistency: constant Location: epigastric Severity: severe Quality: aching Radiation: back Migration to: no migration Exacerbating factors: nothing Relieving factors: nothing Associated symptoms: denies other symptoms and nausea Related Data Allergies Allergy/AdvReac Type Severity Reaction Status Date / Time No Known Allergies Allergy Verified 01/28/23 01:19 Review of Systems Review of Systems: All systems reviewed & are unremarkable except as noted in HPI and below Constitutional: Constitutional: Reports as per HPI and Reports no additional constitutional complaints Eyes: Eyes: Reports as per HPI and Reports no additional eye complaints ENT: Reports system reviewed and no additional complaints, except as documented and Reports as per HPI Cardiovascular: Cardiovascular: Reports as per HPI and Reports no additional cardiovascular complaints Respiratory: Respiratory: Reports as per HPI and Reports no additional respiratory complaints Gastrointestinal: Gastrointestinal: Reports as per HPI and Reports no additional gastrointestinal complaints Comments: epigastric pain which radiates to the back nausea without any vomiting or diarrhea. Genitourinary: Genitourinary: Reports no additional male genitourinary complaints and Reports as per HPI Musculoskeletal: Musculoskeletal: Reports no additional musculoskeletal complaints and Reports as per HPI Integumentary/Breasts: Skin/Breast: Reports system reviewed and no additional complaints, except as docu and Reports as per HPI Neurologic: Reports system reviewed and no additional complaints, except as documented and Reports as per HPI Psychiatric: Psychiatric: Reports no additional psychiatric complaints and Reports as per HPI Endocrine: Endocrine: Reports no additional endocrine complaints and Reports as per HPI Hematologic/Lymphatic: Hematologic/Lymphatic: Reports no additional hematologic/lymphatic complaints and Reports as per HPI Allergic/Immunologic: Allergic/Immunologic: Reports no additional allergic/immunologic complaints and Reports as per HPI PMFSH Past Medical History Medical History Bilateral pneumonia Lip cancer Tobacco use Surgical History Surgical History No pertinent past surgical history Family History Family History Mother Family history non-contributory Social History Social History Smoking packs per day: 1.5 Smoking cigarettes per day: 30.0 Smoking status: Current every day smoker Substance use: never Living arrangements: with family Gender identity (if verbalized by the patient): Male Sexual Orientation (if Verbalized by the Patient): Straight or Heterosexual Spiritual care concerns: No Exam Narrative: blood pressure 158/97 Const: General: no acute distress Nutritional Appearance: well nourished Orientation/consciousness: patient oriented x3 Limitations: no limitations HENMT: Head: normal to inspection Ears: external ears normal Fa
[2024-02-26 15:07] LABS: Basophils Absolute Auto 0.03 K/mm3 (0.00-0.10); Basophils Percent Auto 0.3 % (0.0-1.0); Eosinophils Absolute Auto 0.06 K/mm3 (0.02-0.50); Eosinophils Percent Auto 0.7 % (1.0-6.0); Hematocrit 40.8 % (40.0-54.0); Hemoglobin 13.7 g/dL (14.0-18.0); Immature Granulocyte Absolute 0.03 K/mm3 (0.00-0.00); Immature Granulocyte Percent A 0.3 % (0.0-0.0); Lymphocytes Absolute Auto 1.46 K/mm3 (1.10-4.50); Lymphocytes Percent Auto 16.8 % (18.0-42.0); Mean Corpuscular HGB Conc 33.6 g/dL (32-36); Mean Corpuscular Hemoglobin 30.9 pg (27.0-31.0); Mean Corpuscular Volume 92.1 fL (78.0-102.0); Mean Platelet Volume 8.4 fl (8.7-11.0); Monocytes Absolute Auto 0.74 K/mm3 (0.10-0.90); Monocytes Percent Auto 8.5 % (2.0-11.0); Neutrophils Absolute Auto 6.35 K/mm3 (1.70-7.20); Neutrophils Percent Auto 73.4 % (50.0-70.0); Platelet Count Result 261 K/mm3 (150-420); Red Blood Count 4.43 M/mm3 (4.70-6.10); Red Cell Distribution Width 11.6 % (11.6-14.4); White Blood Count 8.7 K/mm3 (4.8-10.8)
[2024-02-26 15:21] LABS: Partial Thromboplastin Time 26.8 Sec (23.9-30.70)
[2024-02-26 15:23] LABS: Alanine Aminotransferase 26 U/L (16-63); Albumin Level 3.5 g/dL (3.4-5.0); Alkaline Phosphatase 60 U/L (46-116); Anion Gap 12 mmol/L (4-12); Aspartate Amino Transferase 22 U/L (15-37); Bilirubin,Total 0.2 mg/dL (0.00-1.00); Blood Urea Nitrogen 8 mg/dL (7-18); Calcium 8.4 mg/dL (8.5-10.1); Carbon Dioxide 25 mmol/L (21-32); Chloride 95 mmol/L (98-108); Estimated CRCL calculation 117 ml/min; Estimated Glomerular Filt Rate > 60; Glucose 100 mg/dL (70-99); Lipase 33 U/L (16-77); Osmolality Calculated 272 mOsm/kg (285-295); Potassium 4.5 mmol/L (3.5-5.1); Sodium 132 mmol/L (136-145); Total Protein 7.2 g/dL (6.4-8.2)
[2024-02-26 15:24] LABS: Troponin I < 4.0 ng/L (0.00-60.4)
[2024-02-26 15:26] LABS: Lactic Acid Reflex 1.2 mmol/L (0.4-2.0)
[2024-02-26] MEDS: PANTOPRAZOLE 40 MG TABLET PO (15:53)
== END 2024-02-26 15:57 | disposition home or self-care (01) ==
PROVIDERS: Emergency Provider Internal Medicine Critical Care Medicine; PCP Physician Assistant
DX: K27.9 Peptic ulcer, site unspecified, unspecified as acute or chronic, without hemorrhage or perforation (principal); F17.210 Nicotine dependence, cigarettes, uncomplicated
CPT/HCPCS: 36415; 80053; 83605; 83690; 84484; 85025; 85730; 93005; 99283; A9270

== ENCOUNTER 2024-06-19 16:20 | Emergency (ER) | payer BC, OTHER, SELFPAY ==
[2024-06-19 16:26] VITALS: BP 130/77; PULSE 80; RESP 20; TEMP 36.7; O2SAT 95
--- NOTE | 2024-06-19 17:17 | ED.URI ---
HPI - URI/Sore Throat General Chief Complaint: Upper Respiratory Infection Stated Complaint: cough/sob Time Seen by Provider: 06/19/24 17:18 Source: patient Mode of arrival: ambulatory Limitations: no limitations History of Present Illness HPI Narrative: 53-year-old male presented for complaint of cough, shortness of breath and wheezing, nasal congestion, and subjective fever for 2 days. Taking Dayquil for symptoms. Denies chest pain, palpitations, n/v/d. Former smoker, quit 1 year. Related Data Allergies Allergy/AdvReac Type Severity Reaction Status Date / Time No Known Allergies Allergy Verified 01/28/23 01:19 Review of Systems Review of Systems: CONSTITUTIONAL: reports fever, chills EYES: Denies visual changes, redness, or discharge. ENT: Reports rhinorrhea, congestion, Denies sore throat, or otalgia. CARDIOVASCULAR: Denies chest pain, palpitations, or edema. RESPIRATORY: Reports cough, sob, wheezing. GASTROINTESTINAL: Denies abdominal pain, nausea, vomiting, or diarrhea. SKIN: Denies rash, itching, or wounds. MUSCULOSKELETAL: Denies back pain, joint pain, or myalgia. NEUROLOGIC: Denies headache, numbness, tingling, or weakness. All systems reviewed & are unremarkable except as noted in HPI and below PMFSH Past Medical History Medical History Bilateral pneumonia Lip cancer Tobacco use Surgical History Surgical History No pertinent past surgical history Family History Family History Mother Family history non-contributory Social History Social History Smoking packs per day: 1.5 Smoking cigarettes per day: 30.0 Smoking status: Current every day smoker Substance use: never Living arrangements: with family Gender identity (if verbalized by the patient): Male Sexual Orientation (if Verbalized by the Patient): Straight or Heterosexual Spiritual care concerns: No Comments At time of signature, I have reviewed and agree with nursing past medical, surgical, social and family history unless otherwise noted. Please see nursing chart for further information. There is no relevant family history pertinent to the presenting complaint Exam Narrative: GENERAL: Well-appearing, in no acute distress. EYES: EOMI. No redness or drainage. Conjunctivae normal. ENT: Mucous membranes pink and moist. No rhinorrhea. TMs normal bilaterally. Throat normal. Uvula midline. NECK: Normal AROM. Supple. CHEST: No respiratory distress. Wheezing to all [place]. HEART: Regular rate and rhythm. No murmur appreciated. ABDOMEN: Soft, nontender, nondistended, normal active bowel sounds. EXTREMITIES: Normal range of motion. No edema. SKIN: Warm, dry, no rash. Capillary refill normal. Normal skin turgor. NEURO: Alert and oriented x3. Gait steady. PSYCH: Normal affect. Course Course Emergency Course: Patient is aware of diagnosis, understands and agrees to treatment plan. Anticipatory guidance given. Patient agrees to follow-up as directed and is aware of reasons to seek care at the emergency department. Portions of this record may have been created with voice recognition software Level of Care: Express Care Visit Vital Signs Vital signs: Vital Signs Temperature 98.0 F 06/19/24 16:26 Pulse Rate 80 06/19/24 16:26 Respiratory Rate 20 06/19/24 16:26 Blood Pressure 130/77 06/19/24 16:26 Pulse Oximetry 95 06/19/24 16:26 Oxygen Delivery Room Air 06/19/24 16:26 Temperature 98.0 F 06/19/24 16:26 Pulse Rate 80 06/19/24 16:26 Respiratory Rate 20 06/19/24 16:26 Blood Pressure 130/77 06/19/24 16:26 Pulse Oximetry 95 06/19/24 16:26 Oxygen Delivery Room Air 06/19/24 16:26 MDM - URI/Sore Throat MDM Narrative Medical decision making narrative: Discussed physical exam findings c/w bron
== END 2024-06-19 17:31 | disposition home or self-care (01) ==
PROVIDERS: Emergency Provider Nurse Practitioner Family; PCP Physician Assistant
DX: J40 Bronchitis, not specified as acute or chronic (principal); F17.210 Nicotine dependence, cigarettes, uncomplicated
CPT/HCPCS: 99211; G0463

== ENCOUNTER 2024-11-18 23:50 | Emergency (ER) | payer SELFPAY ==
--- OUTSIDE RECORDS SUMMARY | 2024-11-18 23:52 | XMS_ITS | Clinical Summary ---
Author Organization [facility] Address [address] [place] [address] Phone Care Team Providers Care Operations Accountant Name Role Phone Provider, Unknown Primary Care Provider Unavaila ble Allergies No known active allergies Medications promethazine-dex tromethorphan (PROMETHAZINE-DM ) 6.25-15 MG/5ML SyrupIndications :Cough Take 5 mL by mouth every 4 hours as needed for Cough. 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 Gender Identity Not on file Sexual Orientation Not on file Last Filed Vital Signs Vital Sign Reading Time Taken Comments Blood Pressure 122/58 11/19/2019 11:24 AM ELEVATOR CONSTRUCTOR HELPER Pulse 91 11/19/2019 11:24 AM ELEVATOR CONSTRUCTOR HELPER Temperature 36.7 C (98 F) 11/19/2019 11:24 AM ELEVATOR CONSTRUCTOR HELPER Respiratory Rate 20 11/19/2019 11:24 AM ELEVATOR CONSTRUCTOR HELPER Oxygen Saturation 97% 11/19/2019 11:24 AM ELEVATOR CONSTRUCTOR HELPER Inhaled Oxygen Concentration - - Weight 85.7 kg (189 lb) 11/19/2019 11:24 AM ELEVATOR CONSTRUCTOR HELPER Height 177.8 cm (5' 10 ) 11/19/2019 11:24 AM ELEVATOR CONSTRUCTOR HELPER Body Mass Index 27.12 11/19/2019 11:24 AM ELEVATOR CONSTRUCTOR HELPER Plan of Treatment Health Maintenance Due Date Last Done Comments Hepatitis C Virus (HCV) Screening 1970 TdaP Immunization 1970 Hepatitis B Immunization (1 of 3 - 19+ 3-dose series) 1988 Colonoscopy 2014 Colorectal Cancer Screening 2014 Cologuard 12/16/2019 Immunochemical Fecal Occult Blood 12/16/2019 Pneumococcal Immunization (5 0+ years) (1 of 1 - PCV) 12/16/2019 Zoster Immunization (1 of 2) 12/16/2019 Influenza Immunization (#1) 2024 SARS-COV-2 Immunization (4 - 2023- season) 2024 07/28/2021, 01/19/2021, 12/22/2020 Respiratory Syncytial Virus (RSV) Immunization (Adult) (1 - 1-dose 75+ series) 2044 Meningococcal Immunization (ACWY) Aged Out No longer eligible b ased on patient's age to complete this topic Pneumococcal Immunization Combined Aged Out No longer eligible b ased on patient's age to complete this topic Rotavirus Immunization Aged Out No lo nger eligible based on patient's age to complete this topic Insurance MEDICAID [place] Care Teams Operations Accountant Relationship Specialty Start Date End Date Provider, Unknown UNKNOWN PCP - General 11/19/19
--- OUTSIDE RECORDS SUMMARY | 2024-11-18 23:52 | XMS_ITS | Data Portability ---
Author Organization [facility] Address [address] [place] [address] Care Team Providers Care Canvas Cutter Name Role Phone CARMELITA LOCKWOOD Primary Care Provider Assessment No assessment recorded. Plan of Treatment Reminders Order Date Submit Date Provider Last Modified By Organization Details Last Modified Time Details Appointments None recorde d. Lab None recorde d. Referral otolary ngologi st referra l 2022 023 [facility]), [address] [facility], [facility], [place], [address], 3 15:25:12 dermato logist referra l 2022 023 [facility], [address] , [place], [address], 3 16:19:06 Procedures None recorde d. Surgeries None recorde d. Imaging XR, lumbar spine - hx of oral cancer 2023 024 [facility], [address] [facility] , [place], [address], 4 16:31:52 Medication Orders None recorde d. Patient TargetsNo targets recorded. Patient Instructions Encounter Date Encounter Id Patient Instructions Last Modified By Organization Details Last Modified Time 08/13/2023 [id number] A healthy lifestyle: care instructions jnanney Not available 08/13/2023 17:32:20 pancreatitis: care instructions jnanney Not available 08/13/2023 17:32:20 01/04/2024 [id number] A healthy lifestyle: care instructions jnanney Not available 01/04/2024 17:18:15 02/22/2024 [id number] A healthy lifestyle: care instructions jnanney Not available 02/22/2024 17:26:08 back care and preventing injuries: care instructions jnanney Not available 02/22/2024 17:26:08 head and neck cancer: care instructions jnanney Not available 02/22/2024 17:28:11 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 [facility] [address] [facility] [place], [address], 03/13/2024 16:15:15 01/29/20 23 01/28/2023 XR, chest No observ ation record ed. [facility] [address] [place], [address], 03/13/2024 16:15:09 07/31/20 23 07/31/2023 CT, abdom en + pelvi s, w/ contr ast No observ ation record ed. [facility] [address] [place], [address], 03/13/2024 16:15:02 01/03/20 24 01/02/2024 XR, chest No observ ation record ed. [facility] [address] [place], [address], 03/13/2024 16:14:55 02/24/20 24 02/23/2024 XR, lumba r spine No observ ation record ed. [place] [address] [place], [address], 03/13/2024 16:14:48 Result Notes None recorded. Problems No Known Problems Procedures Surgical History Date Name Laterality Status Provider Name and Address Organization Details Recorded Time 11/10/19 Flexible Laryngoscopy completed Carmelita Sherman MD Attn: Accounting,[address] [facility], [place], [address], [facility] 11/10/2022 11:31:50 Imaging Results Imaging Date Name Status LastModified by Organ [facility] Details LastModified Time 01/24/2023 XR, chest completed [place] [address] [place], [address], 03/13/2024 16:15:15 01/28/2023 XR, chest completed [facility] [address] [place], [address], 03/13/2024 16:15:09 07/31/2023 CT, abdomen + pelvis, w/ contrast completed [facility] [address] [place], [address], 03/13/2024 16:15:02 01/02/2024 XR, chest completed [facility] [address] [place], [address], 03/13/2024 16:14:55 02/23/2024 XR, lumbar spine completed [place] [address] [place], [address], 03/13/2024 16:14:48 Procedure Notes None recorded. Medical Equipment None Reported. Allergies No known drug allergies Medications Name Sig Start Date Stop Date Status Note LastModified by Organization Details LastModified Time antacid/wal dryl/lidoca ine 111 SWISH AND SWALLOW 10 ML EVERY 4 HOURS NEEDED FOR MOUTH AND THROAT PAIN 08/13 completed Not Available Not Available Not Available cyclobenzap rine 10 mg tablet TAKE 1 TABLET BY MOUTH THREE TIMES DAILY 10/27 completed Not Available Not Available Not Available amoxicillin 500 mg capsule 08/13 completed Not Available Not Available Not Available promethazin e-DM 6.25 mg-15 mg/5 mL oral syrup 02/07 completed Not Available Not Available Not Available doxycycline hyclate 100 mg capsule TAKE 2 CAPSULES BY MOUTH ONCE FOR 1 DOSE 04/07 completed Not Available Not Available Not Available ketoconazol e 2 % shampoo lather into scalp and let sit x 5 minutes then rinse out three time per week. May also use as facial wash three times per week. 02/07 completed Not Available Not Available Not Available azithromyci n 250 mg tablet 08/13 completed Not Available Not Available Not Available Lidocaine Viscous 2 % mucosal solution 08/13 completed Not Available Not Available Not Available prednisone 20 mg tablet TAKE 2 TABLETS BY MOUTH DAILY FOR 5 DAYS 10/27 completed Not Available Not Available Not Available tramadol 50 mg tablet TAKE 1 TABLET BY MOUTH EVERY 6 HOURS NEEDED 02/21 completed Not Available Not Available Not Available buspirone 10 mg tablet Take 1 tablet(s) twice a day by oral route for 30 days. 2023 active Not Available Not Available Not Avai lable prednisone 50 mg tablet TAKE 1 TABLET BY MOUTH DAILY 08/13 completed Not Available Not Available Not Available orphenadrin e citrate ER 100 mg tablet,exte nded release 02/21 completed Not Available Not Available Not Available diclofenac sodium 75 mg tablet,jason yed release Take 1 tablet twice a day by oral route for 30 days. 06/24 completed Not Available Not Available Not Available hydrocortis one 2.5 % topical cream apply to affected areas BID 8 days a month. 02/07 completed Not Available Not Available Not Available clobetasol 0.05 % topical ointment APPLY A THIN LAYER TO THE AFFECTED AREA(S) BY TOPICAL ROUTE 2 TIMES PER DAY 02/07 completed Not Available Not Available Not Available levofloxaci n 750 mg tablet TAKE 1 TABLET BY MOUTH DAILY FOR 5 DAYS 08/13 completed Not Available Not Available Not Available albuterol sulfate HFA 90 mcg/actuati on aerosol inhaler INHALE 2 PUFFS BY MOUTH EVERY 4-6 HOURS NEEDED FOR SHORTNESS OF BREATH /WHEEZING 08/13 completed Not Available Not Available Not Available ketoconazol e 2 % topical cream apply to affected areas on the face BID as needed for flares. 02/07 completed Not Available Not Available Not Available clobetasol 0.05 % scalp solution APPLY TO THE AFFECTED SCALP AREA BY TOPICAL ROUTE 2 TIMES PER DAY IN THE MORNING AND EVENING 02/07 completed Not Available Not Available Not Available ondansetron 4 mg disintegrat ing tablet TAKE 1 TABLET BY MOUTH EVERY 6 HOURS NEEDED active Not Available Not Available No t Available fluticasone propionate 50 mcg/actuati on nasal spray,suspe nsion SHAKE LIQUID AND USE 2 SPRAYS IN EACH NOSTRIL EVERY DAY 08/13 completed Not Available Not Available Not Available amoxicillin 875 mg-potassiu m clavulanate 125 mg tablet TAKE 1 TABLET BY MOUTH TWICE DAILY FOR 10 DAYS 08/13 completed Not Available Not Available Not Available oxycodone 5 mg tablet TAKE 1 TABLET BY MOUTH EVERY 4 HOURS NEEDED FOR BREAKTHRO UGH PAIN 08/13 completed Not Available Not Available Not Available ID NOW COVID-19 Test Kit TEST DIRECTED TODAY 10/27 completed Not Available Not Available Not Available Vitals Date Recorded Body height Body mass index (BMI) Body weight Body temperature Oxygen saturation Oxygen saturation in Arterial blood by Pulse oximetry Heart rate Respiratory rate Systolic blood pressure Diastolic blood pressure Provider Name and Address Organization Details Last Updated DateTime 3 177.8 cm 30.5 kg/m2 84582.4 6 g 97.8 [degF] 96 % 96 % 85 /min 12 /min 135 mm[Hg] 86 mm[Hg] Arabella Jaeger MA [facility] 3 12:21:38 Date Recorded Body height Heart rate Pain severity - 0-10 verbal numeric rating [Score] - Reported Body temperature Respiratory rate Body mass index (BMI) Body weight Systolic blood pressure Diastolic blood pressure Provider Name and Address Organization Details Last Updated DateTime 3 180.34 cm 98 /min 9 99.1 [degF] 18 /min 29.7 kg/m2 71504.1 7 g 144 mm[Hg] 88 mm[Hg] Ainsley Espinal LPN [facility] 3 14:49:29 Date Recorded Body height Body mass index (BMI) Body weight Oxygen saturation Oxygen saturation in Arterial blood by Pulse oximetry Heart rate Systolic blood pressure Diastolic blood pressure Provider Name and Address Organization Details Last Updated DateTime 3 180.34 cm 28.6 kg/m2 78274.4 4 g 98 % 98 % 96 /min 128 mm[Hg] 92 mm[Hg] Peace Schmitt MA [facility] 3 17:19:49 Date Recorded Body height Body mass index (BMI) Body weight Oxygen saturation Oxygen saturation in Arterial blood by Pulse oximetry Heart rate Systolic blood pressure Diastolic blood pressure Provider Name and Address Organization Details Last Updated DateTime 4 180.34 cm 29.6 kg/m2 23603.6 8 g 98 % 98 % 89 /min 144 mm[Hg] 82 mm[Hg] Yamilex Nielsen MA [facility] 4 17:08:41 Date Recorded Body height Body mass index (BMI) Body weight Heart rate Oxygen saturation Oxygen saturation in Arterial blood by Pulse oximetry Systolic blood pressure Diastolic blood pressure Provider Name and Address Organization Details Last Updated DateTime 4 180.34 cm 30.8 kg/m2 490764. 91 g 89 /min 98 % 98 % 120 mm[Hg] 76 mm[Hg] Yamilex Nielsen MA [facility] 4 17:20:20 Social History Question Answer Notes LastModified by Organization Details LastModified Time Tobacco Smoking Status Former Smoker Peace Schmitt MA null, [facility] 08/13/2023 17:17:29 What Is Your Level Of Alcohol Consumption? Moderate Beer Information not available 11/10/2022 Are You Blind Or Do You Have Difficulty Seeing? No Reading Glasses Information not available 12/11/2022 What Is Your Level Of Caffeine Consumption? Moderate 1 Cup A Day Information not available 12/11/2022 How Much Tobacco Do You Chew? None Information not available 04/15/2020 In The 14 Days Before Symptom Onset, Have You Had Close Contact With A Laboratory-con firmed COVID-19 While That Case Was Ill? No Information not available 06/24/2021 In The 14 Days Before Symptom Onset, Have You Had Close Contact With A Person Who Is Under Investigation For COVID-19 While That Person Was Ill? No Information not available 06/24/2021 Have You Been To An Area Known To Be High Risk For COVID-19? No Information not available 06/24/2021 Are You Currently Employed? Yes Information not available 04/15/2020 Are You Deaf Or Do You Have Serious Difficulty Hearing? Yes Platinum In Both Ears Information not available 12/11/2022 What Type Of Diet Are You Following? REGULAR Information not available 04/15/2020 Which Illicit Or Recreational Drugs Have You Used? None Information not available 04/15/2020 Do You Or Have You Ever Used E-cigarettes Or Vape? 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 With Others Information not available 04/15/2020 What Was The Date Of Your Most Recent Tobacco Screening? 02/22/2024 Information not available 02/22/2024 Do You Have Any Pets? Yes Information not available 11/10/2022 What Is Your Relationship Status? Information not available 06/24/2021 Do You Have Smoke And Carbon Monoxide Detectors In Your Home? Yes Information not available 06/24/2021 Are You Passively Exposed To Smoke? Yes Information not available 06/24/2021 Do You Or Have You Ever Used Smokeless Tobacco? Never Used Smokeless Tobacco Information not available 04/15/2020 How Much Tobacco Do You Smoke? 1 PPD Maybe A Little Less Information not available 11/10/2022 Do You Feel Stressed (tense, Restless, Nervous, Or Anxious, Or Unable To Sleep At Night)? [id number] Information not available 06/24/2021 Do You Use Any Illicit Or Recreational Drugs? No Information not available 06/24/2021 Do You Use Sunscreen Routinely? No Summer Time Yes Information not available 11/10/2022 Has Tobacco Cessation Counseling Been Provided? Yes Information not available 06/24/2021 On What Date Was Tobacco Cessation Counseling Provided? 02/22/2024 Information not available 02/22/2024 What Type Of Noise Exposure Are You Exposed To? NoExposureToExcessive Noise Information not available 11/10/2022 Do You Or Have You Ever Used Any Other Forms Of Tobacco Or Nicotine? Yes Information not available 08/13/2023 Sex: Male Functional Status Question Answer Note LastModified by Organization D etails LastModified Time Are you able to care for yourself? Yes Information n ot available 04/15/2020 What is your exercise level? None Information not available 12/11/2022 Mental Status None recorded. Family History Relationship Description Onset Age of this Age Resolved Age Notes LastModified by Organization Details LastModified Time Mother Hypertensive disorder [email or web address] Not available 12/26 14:15:37 Mother Diabetes mellitus rlenhardtma Not available 10/28 11:10:58 Maternal Grandmother Diabetes mellitus rlenhardtma Not available 10/28 11:10:58 Paternal Grandfather Heart disease rlenhardtma Not available 10/28 11:11:17 Medical History No medical history recorded. Immunizations Vaccine Type Date Status Note Provider Nam e and Address Organization Details Recorded Time COVID-19, mRNA, LNP-S, PF, 30 mcg/0.3 mL dose 12/22/2020 completed Not Available [facility] 4 17:08:36 COVID-19, mRNA, LNP-S, PF, 30 mcg/0.3 mL dose 01/19/2021 completed Not Available [facility] 4 17:08:36 COVID-19, mRNA, LNP-S, PF, 30 mcg/0.3 mL dose 07/28/2021 completed GHADA [place], [place] - [facility] 07/28/2021 13:07:37 Past Encounters Encounter ID Performer Location Encounter Start Date Encounter Closed Date Diagnosis/Indication Diagnosis SNOMED-CT Code Diagnosis ICD10 Code Diagnosis Note [id number] Jenifer Shane MA [facility] [address] [place] [address] 01/13/2018 13:59:34 01/13/2018 14:38:42 Congenital deafness 94520151 H90.3 Shoulder j oint painful on movement 255427498 M25.804 [id number] Carmelita Lockwood PA-C [facility] [address] [place] [address] 12/14/2018 10:09:02 12/14/2018 12:32:47 Hyperlipidemia 36538515 E78.2 Congenital deafness 9582 8007 H90.3 Eczema 24574970 L30.9 [id number] Daphne Garnett [facility] ([facility] 104) [address] [place] [address] 03/08/2019 14:38:57 03/09/2019 09:16:52 Seborrheic dermatitis 86747630 L21.9 [id number] Carmelita Lockwood PA-C [facility] [address] [place] [address] 06/14/2019 15:46:52 06/15/2019 11:45:13 Acute laryngitis 6907070 J04.0 Obstructiv e sleep apnea syndrome 86071646 G47.33 [id number] Carmelita Lockwood PA-C [facility] [address] [place] [address] 07/20/2019 14:29:51 07/20/2019 16:47:48 Near syncope 863242785 R55 [id number] Carmelita Lockwood PA-C [facility] [address] [place] [address] 02/08/2020 10:25:07 02/09/2020 10:03:03 Seasonal allergic rhinitis 373471381 J30.2 [id number] Carmelita Lockwood PA-C [facility] [address] [place] [address] 04/15/2020 09:42:13 04/15/2020 17:20:48 Tendinitis of right elbow 0932140193 7603827 M67.037 [id number] Carmelita Lockwood PA-C [facility] [address] [place] [address] 06/24/2021 15:03:39 06/24/2021 16:19:16 Generalized anxiety disorder 80454121 F41.1 Primary hypertriglyceridemia 106989280 E78.1 [id number] Carmelita Lockwood PA-C [facility] [address] [place] [address] 07/07/2021 15:30:33 07/07/2021 16:26:16 Obesity 371968167 E66.09 Screening for malignant neoplasm of colon 279237052 Z12.11 Screening for malignant neoplasm of prostate 844209345 Z12.5 Generalize d anxiety disorder 86431619 F41.1 [id number] Carmelita Lockwood PA-C [facility] [address] [place] [address] 07/22/2021 14:43:44 07/22/2021 19:26:[id number] Schmitt MA [facility] [address] [place] [address] 07/28/2021 12:59:52 07/29/2021 14:44:38 Administration of SARS-CoV-2 mRNA vaccine 1767424250 Z23 [id number] Carmelita Lockwood PA-C [facility] [address] [place] [address] 03/02/2022 16:37:45 03/02/2022 17:14:26 Daytime somnolence 2826379596 00 R40.0 [id number] Carmelita Lockwood PA-C [facility] [address] [place] [address] 04/07/2022 17:09:19 04/07/2022 18:00:46 Cervical radiculopathy 59156582 M54.12 [id number] Carmelita Lockwood PA-C [facility] [address] [place] [address] 10/27/2022 16:25:45 10/27/2022 17:06:44 Loss of voice 42574279 R49.1 Overweight 755551139 E66 .3 Obstructiv e sleep apnea syndrome 44161004 G47.33 [id number] [facility] [address] [place] [address] 11/10/2022 11:01:58 11/12/2022 09:24:22 Chronic hoarseness 4836776450 105 R49.0 vocal cords are clear Chronic rhinitis 6620434 6 J31.0 start saline irrigation return if he doesn't improve [id number] Carmelita Lockwood PA-C 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 [address] [place] [address] 08/13/2023 16:59:32 08/23/2023 14:09:35 Chronic pancreatitis 775385686 K86.1 Overweight 702334896 E66 .3 [id number] Carmelita Lockwood PA-C [facility] [address] [place] [address] 01/04/2024 17:00:01 01/13/2024 16:12:03 Spasm of muscle of lower back 7537087053 0750763 M62.830 Overweight 905094310 E66 .3 [id number] Carmelita Lockwood PA-C [facility] [address] [place] [address] 02/22/2024 17:14:51 02/24/2024 16:31:52 Low back pain 558945540 M54.51 Overweight 617740056 E66 .3 Malignant tumor of oral cavity 312229995 C00.4 Health Concerns Section Related Observation LastModified by Organization Detai ls LastModified Time None Recorded Concern Status LastModified by Organization Details LastModified Time None Recorded Advance Directives Directive None Recorded Payers Encounter Date Sequence Insurance Name Policy Number Policy Brown Covered Member ID Brown Member ID Guarantor Name 12/11/2022 1 [facility] (MEDICAID HM) [id number] Carmelita Sands [id number] Carmelita Naqviollum 01/12/2023 1 [facility] (MEDICAID HMO) [id number] Carmelita Hintonum [id number] Carmelita Sands 08/13/2023 1 [facility] (MEDICAID HMO) [id number] Carmelita Hintonum [id number] Carmelita Hintonum 01/04/2024 1 [facility] (MEDICAID HMO) [id number] Carmelita Hintonum [id number] Carmelita Shavon 02/22/2024 1 [facility] (MEDICAID HMO) [id number] Carmelita Sands [id number] Carmelita Shavon Notes Date Note Type Note Provider Name and Address Organization Details Recorded Time 12/11/2022 text/html has a suspicious sore on his lip...went to urgent care but they did nothing Carmelita Lockwood PA-C Attn: Accounting,[address] [facility], [place], [address] 12/11/2022 12:31:17 01/12/2023 text/html patient complaining of a lesion on his lip. He says has been there for a couple of months has been getting larger. He is a smoker. Carmelita Sherman MD [address] [place], [address], [facility] 01/12/2023 15:02:14 08/13/2023 text/html ER follow up vs syncope possible seizure...was drinking at the time...has since cleaned up his act... Carmelita Lockwood PA-C Attn: Accounting,[address] [facility], [place], [address], [facility] 08/13/2023 17:32:54 01/04/2024 text/html ER follow up vs chest pain..abdominal pain...has improved today Carmelita Lockwood PA-C Attn: Accounting,[address] [place], [address], [facility] 01/04/2024 17:18:46 02/22/2024 text/html still having meaghan k pain..2 months...stands alot on concrete..hx of cancer in mouth... Carmelita Lockwood PA-C Attn: Accounting,[address] [facility], [place], [address], [facility] 02/22/2024 17:28:54
--- OUTSIDE RECORDS SUMMARY | 2024-11-18 23:53 | XMS_ITS | Clinical Summary ---
Author Organization [facility] Address [address] [place] [address] Care Team Providers Care Rehab Liaison Name Role Phone Emmanuel Lockwood Primary Care Provider [phone] Source Comments [facility],non-owned Affiliates and Associated Physician Practices is amultiple site organization consisting of ambulatory clinics and hospital sitesin [place], [place], [place] and [place]. This disclosure is being madepursuant to the Care Everywhere program and may not contain all information available regarding this patient. Last updated 18.[facility] Power Assure Allergies No known active allergies Social History Tobacco Use Types Packs/Day Years Used Date Smoking Tobacco: Never Assessed Sex and Gender Information Value Date Recorded Sex Assigned at Not on file Gender Identity Not on file Sexual Orientation Not on file Last Filed Vital Signs Vital Sign Reading Time Taken Comments Blood Pressure 132/84 07/19/2019 6:30 AM CDT Pulse 73 07/19/2019 6:30 AM CDT Temperature 36.7 C (98 F) 07/19/2019 3:44 AM CDT Respiratory Rate 14 07/19/2019 6:30 AM CDT Oxygen Saturation 94% 07/19/2019 6:30 AM CDT Inhaled Oxygen Concentration - - Weight 85.7 kg (189 lb) 07/19/2019 3:44 AM CDT Height 180.3 cm (5' 11 ) 07/19/2019 3:44 AM CDT Body Mass Index 26.36 07/19/2019 3:44 AM CDT Plan of Treatment Health Maintenance Due Date Last Done Comments [place] (AGES 45-75) - COL ON CA SCREENING 1969 COLON MONITORING 1969 COLONOSCOPY - COLON CA SCREENING 1969 CT COLONOGRAPHY - COLON CA SCREENING 1969 Colorectal Cancer Screening 1969 FIT - COLON CA SCREENING 1969 FLEX SIG - COLON CA SCREENING 1969 LIPID TESTING 1969 HIV SCREENING 1984 HEPATITIS C SCREENING 12/11/1987 DTAP/TDAP/TD VACCINES (1 - Tdap) 1988 HEPATITIS B VACCINE (1 of 3 - 19+ 3-dose series) 1988 PNEUMOCOCCAL VACCINE 50+ (1 of 1 - PCV) 12/16/2019 ZOSTER VACCINE (1 of 2) 12/16/2019 COVID-19 VACCINE (1 - 2023-2 5 season) 2024 INFLUENZA VACCINE (#1) 2024 DEPRESSION SCREENING 09/27/2024 HIB VACCINE Aged Out No longer eligi ble based on patient's age to complete this topic HPV VACCINE Aged Out No longer eligi ble based on patient's age to complete this topic MENINGOCOCCAL (Group B) VACCINE Aged Out No longer eligible based on patient's age to complete this topic MENINGOCOCCAL VACCINE Aged Out No teo joaquina eligible based on patient's age to complete this topic PNEUMOCOCCAL VACCINE Aged Out No long er eligible based on patient's age to complete this topic Care Teams Rehab Liaison Relationship Specialty Start Date End Date Emmanuel Lockwood PA [address] [place] [id number] PCP - General Physician Physical Therapy Instructor 07/19/19
--- OUTSIDE RECORDS SUMMARY | 2024-11-18 23:53 | XMS_ITS | Patient Health Summary ---
Author Organization [facility] Address [address] [facility] [place] [address] Care Team Providers Care Diamond Wheel Molder Name Role Phone Emmanuel Lockwood Primary Care Provider [phone] Note from [facility],non-owned Affiliates and Associated Physician Practices is amultiple site organization consisting of ambulatory clinics and hospital sitesin [place], [place], [place] and [place]. This disclosure is being madepursuant to the Care Everywhere program and may not contain all information available regarding this patient. Last updated 18.[facility] [employer] Allergies No known active allergies Social History [...] Mass Index 26.36 07/19/2019 3:44 AM CDT Procedures * CARDIAC EKG ORDER(Performed 07/19/2019) * EKG 12-LEAD(Performed 07/19/2019) Performed for Medication side effect, initial encounter * MAGNESIUM BLOOD(Performed 07/19/2019) * COMPREHENSIVE METABOLIC PANEL(Performed 07/19/2019) * CBC W AUTO DIFFERENTIAL(Performed 07/19/2019) Results * CARDIAC EKG ORDER (07/19/2019 9:39 PM CDT) Narrative 07/19/2019 9:39 PM CDT Ordered by an unspecified provider. Scanned Document CARDIAC SERVICES ORD ERABLES * EKG 12-LEAD (07/19/2019 3:55 AM CDT) Pathologist [facility] Ventricular Rate 86 BPM [facility] Atrial Rate 86 BPM [facility] P-R Interval 120 ms [facility] QRS Duration ms 86 ms [facility] Q-T Interval ms 390 ms [facility] QTC Calculation (Bezet) 466 ms [facility] Calculated P [place] 64 degrees [facility] Calculated R [place] 71 degrees [facility] Calculated T [place] 70 degrees [facility] Interpretation EKG Normal sinus rhythm Normal ECG No previous ECGs available Confirmed by MARGARET GODINEZ, BRITTNY ([id number]) on 07/19/2019 1:32:00 PM [facility] 07/19/2019 3:55 AM CDT 07/19/2019 1:32 PM CDT Chris Mccullough MD ECG ORDERABLES [facility] * CBC W AUTO DIFFERENTIAL (07/19/2019 3:50 AM CDT) Pathologist [facility] WBC 8.0 4.4 - 10.7 x10E9/L 07/19/2019 5:47 AM CDT [facility] WBC Corrected 07/19/2019 5:47 AM CDT [facility] RBC 4.70 3.80 - 5.40 x10E12/L 07/19/2019 5:47 AM CDT [facility] Hemoglobin 14.9 12.0 - 17.6 gm/dL 07/19/2019 5:47 AM CDT [facility] Hematocrit 44.8 35.2 - 51.7 % 07/19/2019 5:47 AM CDT [facility] MCV 95.3 80.7 - 98.3 fl 07/19/2019 5:47 AM CDT [facility] MCH 31.7 26.7 - 34.0 pg 07/19/2019 5:47 AM CDT [facility] MCHC 33.3 30.8 - 35.9 gm/dL 07/19/2019 5:47 AM CDT [facility] Platelet Count 330 153 - 416 x10E9/L 07/19/2019 5:47 AM CDT [facility] RDW-CV 12.8 12.1 - 14.9 % 07/19/2019 5:47 AM CDT [facility] MPV 9.4 9.4 - 12.9 fl 07/19/2019 5:47 AM CDT [facility] Neutrophils % 55.9 44.0 - 73.0 % 07/19/2019 5:47 AM CDT [facility] Lymphocytes % 30.5 20.0 - 43.0 % 07/19/2019 5:47 AM CDT [facility] Monocytes % 12.1 5.0 - 13.0 % 07/19/2019 5:47 AM CDT [facility] Eosinophils % 0.9 0.0 - 6.0 % 07/19/2019 5:47 AM CDT [facility] Basophils % 0.3 0.0 - 2.0 % 07/19/2019 5:47 AM CDT [facility] Immature Granulocytes 0.3 0 - 1 % 07/19/2019 5:47 AM CDT [facility] Neutrophil Absolute 4.46 2.01 - 7.14 x10E9/L 07/19/2019 5:47 AM CDT [facility] Lymphocytes Absolute 2.43 1.07 - 3.94 x10E9/L 07/19/2019 5:47 AM CDT [facility] Monocytes Absolute 0.96 0.26 - 1.07 x10E9/L 07/19/2019 5:47 AM CDT [facility] Eosinophils Absolute 0.07 0 - 0.47 x10E9/L 07/19/2019 5:47 AM CDT [facility] Basophils Absolute 0.02 0 - 0.08 x10E9/L 07/19/2019 5:47 AM CDT [facility] Immature Granulocytes Absolute 0.02 0.00 - 0.06 x10E9/L 07/19/2019 5:47 AM CDT [facility] nRBC Auto 0 /100 WBC 07/19/2019 5:47 AM CDT [facility] Blood BLOOD SPECIMEN / Unknown Venipuncture / Unknown 07/19/2019 3:50 AM CDT 07/19/2019 5:39 AM CDT Chris Mccullough MD LAB - HEMATOLOGY OR DERABLES [facility] [address] [address] * (ABNORMAL) COMPREHENSIVE METABOLIC PANEL (07/19/2019 3:50 AM CDT) Glucose 138(H) 70 - 105 mg/dL 07/19/2019 6:01 AM CDT [facility] Sodium 138 136 - 145 mmol/L 07/19/2019 6:01 AM CDT [facility] Potassium 4.2 3.5 - 5.1 mmol/L 07/19/2019 6:01 AM CDT [facility] Chloride 104 98 - 107 mmol/L 07/19/2019 6:01 AM CDT [facility] CO2 23 23 - 31 mmol/L 07/19/2019 6:01 AM CDT [facility] Calcium 9.0 8.4 - 10.2 mg/dL 07/19/2019 6:01 AM CDT [facility] Anion Gap 11 8 - 16 mmol/L 07/19/2019 6:01 AM CDT [facility] BUN 6(L) 8.9 - 20.6 mg/dL 07/19/2019 6:01 AM CDT [facility] Creatinine 0.93 0.72 - 1.25 mg/dL 07/19/2019 6:01 AM CDT [facility] Alkaline Phosphatase 52 40 - 150 U/L 07/19/2019 6:01 AM CDT [facility] ALT 14 0 - 61 U/L 07/19/2019 6:01 AM CDT [facility] AST 21 5 - 34 U/L 07/19/2019 6:01 AM CDT [facility] Protein Total 6.7 6.4 - 8.3 gm/dL 07/19/2019 6:01 AM CDT [facility] Albumin 4.0 3.5 - 5.2 gm/dL 07/19/2019 6:01 AM CDT [facility] Bilirubin Total 0.6 0.2 - 1.2 mg/dL 07/19/2019 6:01 AM CDT [facility] eGFR by MDRD >60 >60 mL/min/1.7 3m2 07/19/2019 6:01 AM CDT [facility] eGFR by MDRD >60 >60 mL/min/1.7 3m2 07/19/2019 6:01 AM CDT [facility] Blood BLOOD SPECIMEN / Unknown Venipuncture / Unknown 07/19/2019 3:50 AM CDT 07/19/2019 5:40 AM CDT Chris Mccullough MD LAB - CHEMISTRY ORD ERABLES [facility] [address] [id number] * MAGNESIUM BLOOD (07/19/2019 3:50 AM CDT) Magnesium 1.8 1.6 - 2.6 mg/dL 07/19/2019 6:01 AM CDT [facility] Blood BLOOD SPECIMEN / Unknown Venipuncture / Unknown 07/19/2019 3:50 AM CDT 07/19/2019 5:40 AM CDT Chris Mccullough MD LAB - CHEMISTRY ORD ERABLES [facility] [address] [address] Care Teams Diamond Wheel Molder Relationship Specialty Start Date End Date Emmanuel Lockwood PA [address] [place] [address] PCP - General Physician Restaurant Greeter 07/19/19
--- OUTSIDE RECORDS SUMMARY | 2024-11-18 23:53 | XMS_ITS | Clinical Summary ---
Author Organization [facility] Address [address] [place] [address] Care Team Providers Care Horse Race Timer Name Role Phone Emmanuel Lockwood Primary Care Provider [phone] Emmanuel Sherman MD Unavailable [phone] Jimbo Gomez MD Unavailable [phone] Allergies No known active allergies Medications albuterol HFA (ProAir HFA) 90 mcg/actuation inhalerIndications :Wheezing Inhale 2 puffs every 4 (four) hours as needed for wheezing or shortness of breath 8.5 g 1 Active ibuprofen 200 mg tab/capIndications :Anti-inflammatory Take 4 tablet/capsul e (800 mg total) by mouth every 8 (eight) hours as needed for pain Active omeprazole (PriLOSEC) 40 mg capsuleIndications :GERD Take 1 capsule (40 mg total) by mouth daily 30 capsule 2 3 Active ondansetron ODT (ZOFRAN-ODT) 4 mg disintegrating tablet Take 1 tablet (4 mg total) by mouth every 6 (six) hours as needed Active busPIRone (BUSPAR) 10 mg tablet Take 1 tablet (10 mg total) by mouth 2 (two) times a day Takes as needed- not everyday Active Active Problems Problem Noted Date Diagnosed Date Encounter for follow-up exam ination after completed treatment for malignant neoplasm 02/23/2024 Personal history of irradiation 02/23/2024 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 Cancer Staging:Clinical stage from 02/04/2023:Stage I(cT1, cN0, cM0) - Signed by Jimbo Gomez MD on 02/25/2023 Pathologic stage from 02/04/2023:No Stage Recommended(pT1, cN0, cM0) - Signed by Jimbo Gomez MD on 07/28/2023 Surgical History Surgery Date Site/Laterality Comments NO PAST SURGERIES SURGERY OF LIP 02/04/2023 Left left lower lip excision Medical History Medical History Date Comments HL (hearing loss) Family History Medical History Relation Name Comments Cancer Father Lung Heart disease Father Cancer Mother Heart attack Mother Heart disease Sister Anesthesia problems Neg Hx Relation Name Status Comments Father Mother Alive Sister Social History Tobacco Use Types Packs/Day Years Used Date Smoking Tobacco: Former Cigarettes 1 26 0 12/1996 - 12/2022 Smokeless Tobacco: Never Tobacco Cessation:Counseling Given: Not Answered Alcohol Use Standard Drinks/Week Comments Yes 6 (1 standard drink = 0.6 oz pur e alcohol) AUDIT-C Answer Date Recorded Q1: How often do you have a drink containing alcohol? 4 or more times a week 10/12/2023 Average Number of Drinks Not on file 024 Frequency of Binge Drinking Not on file 09/27 Personal Safety Answer Date Recorded Have you ever been in or are you currently in a harmful physical or emotional relationship or is someone making you feel afraid or unsafe? Denies 07/02/2023 Sex and Gender Information Value Date Recorded Sex Assigned at Not on file Legal Sex Male 11:46 AM SAMPLE WORKER Gender Identity Not on file Sexual Orientation Not on file Obstetrics History Last Filed Vital Signs Vital Sign Reading Time Taken Comments Blood Pressure 140/91 06/14/2024 2:44 PM CDT Pulse 89 06/14/2024 2:44 PM CDT Temperature 36.9 C (98.4 F) 06/14/2024 2:44 PM CDT Respiratory Rate 18 06/14/2024 2:44 PM CDT Oxygen Saturation 99% 06/14/2024 2:44 PM CDT Inhaled Oxygen Concentration - - Weight 102.6 kg (226 lb 1.6 oz) 06/14/2024 2:44 PM CDT Height 180.3 cm (5' 11 ) 10/12/2023 3:48 PM SAMPLE WORKER Body Mass Index 31.53 10/12/2023 3:48 PM SAMPLE WORKER Plan of Treatment Health Maintenance Due Date Last Done Comments Colon Cancer Screening-Colonoscopy 1969 Depression Screening 1969 Hepatitis C Screening 1969 Prostate Cancer Screening-PSA 1969 DTaP/Tdap/Td Vaccine (1 - Tdap) 1980 Hepatitis B Screening 12/16/1987 Regular Well Visit/Exam 18-64 12/16/1987 Lung Cancer Screening 12/16/2019 Zoster Vaccine (1 of 2) 12/16/2019 Covid-19 Vaccine (2023-2 5 season) 2024 07/28/2021, 01/19/2021, 12/22/2020 Influenza Vaccine (#1) 2024 Pneumococcal vaccine <65 Aged Out No longer eligible based on patient's age to complete this topic Insurance [facility] BLUE ACCESS OOS [facility] BLUE ACCESS OOS Care Teams Horse Race Timer Relationship Specialty Start Date End Date Emmanuel Lockwood PA [address] [place] [address] PCP - General 12/03/19 Emmanuel Sherman MD [address] [place] [address] Surgeon Otolaryngology 01/26/23 Jimbo Gomez MD [address] [address] [place] [address] Radiation Oncologist Radiation Oncology 02/27/23
--- OUTSIDE RECORDS SUMMARY | 2024-11-18 23:53 | XMS_ITS | Referral Summary ---
Author Organization [facility] Address [address] [facility] [place] [address] Care Team Providers Care Technician'S Helper Name Role Phone Emmanuel Lockwood Primary Care Provider [phone] Source Comments [facility],non-owned Affiliates and Associated Physician Practices is amultiple site organization consisting of ambulatory clinics and hospital sitesin [place], [place], [place] and [place]. This disclosure is being madepursuant to the Care Everywhere program and may not contain all information available regarding this patient. Last updated 18.[facility] [employer] Allergies No known active allergies Social History [...] 07/19/2019 3:44 AM CDT Plan of Treatment Not on file Care Teams Technician'S Helper Relationship Specialty Start Date End Date Emmanuel Lockwood PA [address] [place] [address] PCP - General Physician Seafood Fisherman 07/19/19
--- OUTSIDE RECORDS SUMMARY | 2024-11-18 23:53 | XMS_ITS ---
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 Past Treatment and Therapy Plans No past plan information found. Radiation Treatments * Course C1 Lip 202203/26/2023 - 05/07/2023 Treatment Period Energy Fraction Dose Fractions Total Dose Plans Planned Lower Lip 03/26/2023 - 05/07/2023 200 30 / 6,000 Reference Points Delivered [id number]_6000 03/26/2023 - 05/07/2023 6,000 Lifetime Dose Tracking * Chemical Lifetime Dose Automatic Entry Manual Entr y DLP 1,511.3 mGycm 1,511.3 mGycm 0 mGycm
--- OUTSIDE RECORDS SUMMARY | 2024-11-18 23:53 | XMS_ITS | Referral Summary ---
Author Organization [facility] Address [address] [place] [address] Care Team Providers Care Straw Hat Presser Name Role Phone Emmanuel Lockwood Primary Care Provider [phone] Emmanuel Sherman MD Unavailable [phone] Jimbo Gomez MD Unavailable [phone] Allergies No known active allergies Medications albuterol [...] Signed by Jimbo Gomez MD on 07/28/2023 Social History Tobacco Use Types Packs/Day Years [...] on file Legal Sex Male 11:46 AM MOBILE APPLICATION ENGINEER Gender Identity Not on file Sexual Orientation [...] cm (5' 11 ) 10/12/2023 3:48 PM MOBILE APPLICATION ENGINEER Body Mass Index 31.53 10/12/2023 3:48 PM MOBILE APPLICATION ENGINEER Plan of Treatment Not on file Insurance [facility] BLUE ACCESS O [facility] [employer] ACCESS OOS Member Subscriber Plan / Payer (Ef fective 2023-Present) Name:Emmanuel Sands Relation to Subscriber:Self Name:Emmanuel Sands Payer ID:[id number] (NAIC) Type:BC ALLIANCE Address: [facility] [address] [place] [id number] Care Teams Straw Hat Presser Relationship Specialty Start Date End Date Emmanuel Lockwood PA [address] [place] [address] PCP - General 12/03/19 Emmanuel Sherman MD [address] [place] [address] Surgeon Otolaryngology 01/26/23 Jimbo Gomez MD [address] [facility] [address] [place] [address] Radiation Oncologist Radiation Oncology 02/27/23
[2024-11-19 00:05] VITALS: BP 150/109; PULSE 90; RESP 18; TEMP 37; O2SAT 98
[2024-11-19 00:35] VITALS: BP 148/102; PULSE 99; RESP 18; O2SAT 100
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
--- OUTSIDE RECORDS SUMMARY | 2024-11-19 00:49 | XMS_ITS | Clinical Summary ---
Author Organization [facility] Address [address] [facility] [place] [address] Care Team Providers Care Swimming Pool Plasterer Helper Name Role Phone Emmanuel Lockwood Primary Care Provider [phone] [facility],non-owned Affiliates and Associated Physician Practices is amultiple site organization consisting of ambulatory clinics and hospital sitesin [place], [place], [place] and [place]. This disclosure is being madepursuant to the Care Everywhere program and may not contain all information available regarding this patient. Last updated 18.[facility] [employer] Allergies No known active allergies Social History [...] age to complete this topic Care Teams Swimming Pool Plasterer Helper Relationship Specialty Start Date End Date Emmanuel Lockwood PA [address] [place] [id number] PCP - General Physician Manufacturing Teacher 07/19/19
--- OUTSIDE RECORDS SUMMARY | 2024-11-19 00:49 | XMS_ITS | Referral Summary ---
Author Organization [facility] Address [address] [facility] [place] [address] Care Team Providers Care Retail Bakery Manager Name Role Phone Emmanuel Lockwood Primary Care Provider [phone] Source Comments [facility],non-owned Affiliates and Associated Physician Practices is amultiple site organization consisting of ambulatory clinics and hospital sitesin [place], [place], [place] and [place]. This disclosure is being madepursuant to the Care Everywhere program and may not contain all information available regarding this patient. Last updated 18.[facility] [employer] Allergies No known active allergies Social History [...] of Treatment Not on file Care Teams Retail Bakery Manager Relationship Specialty Start Date End Date Emmanuel Lockwood PA [address] [place] [address] PCP - General Physician Ceramic Tile Setter 07/19/19
--- OUTSIDE RECORDS SUMMARY | 2024-11-19 00:49 | XMS_ITS ---
Author Organization [facility] Address [address] [place] [address] Care Team Providers Care Hide Stretcher Hand Name Role Phone Emmanuel Lockwood Primary Care Provider [phone] Emmanuel Sherman MD Unavailable [phone] Jimbo Gomez MD Unavailable [phone] Active Problems Problem Noted Date Diagnosed Date [...]
--- OUTSIDE RECORDS SUMMARY | 2024-11-19 00:49 | XMS_ITS | Clinical Summary ---
Author Organization [facility] Address [address] [place] [address] Care Team Providers Care Airline Counter Agent Name Role Phone Emmanuel Lockwood Primary Care Provider [phone] Emmanuel Sherman MD Unavailable [phone] Jimbo Gomez MD Unavailable [phone] Allergies No known active allergies Medications albuterol [...] on file Legal Sex Male 11:46 AM COMPUTER PROGRAMMING PROFESSOR Gender Identity Not on file Sexual Orientation [...] cm (5' 11 ) 10/12/2023 3:48 PM COMPUTER PROGRAMMING PROFESSOR Body Mass Index 31.53 10/12/2023 3:48 PM COMPUTER PROGRAMMING PROFESSOR Plan of Treatment Health Maintenance Due Date [...] age to complete this topic Insurance [facility] BLUE ACCESS OOS [facility] BLUE ACCESS OOS Care Teams Airline Counter Agent Relationship Specialty Start Date End Date Emmanuel Lockwood PA [address] [place] [address] PCP - General 12/03/19 Emmanuel Sherman MD [address] [place] [address] Surgeon Otolaryngology 01/26/23 Jimbo Gomez MD [address] [facility] [address] [place] [address] Radiation Oncologist Radiation Oncology 02/27/23
--- OUTSIDE RECORDS SUMMARY | 2024-11-19 00:49 | XMS_ITS | Patient Health Summary ---
Author Organization [facility] Address [address] [place] [address] Care Team Providers Care Diesel Engine Tester Name Role Phone Emmanuel Lockwood Primary Care Provider Note from [facility],non-owned Affiliates and Associated Physician Practices is amultiple site organization consisting of ambulatory clinics and hospital sitesin [place], [place], [place] and [place]. This disclosure is being madepursuant to the Care Everywhere program and may not contain all information available regarding this patient. Last updated 18.[facility] [place] Self Representation Document Preparation Allergies No known active allergies Social History [...] EKG 12-LEAD (07/19/2019 3:55 AM CDT) Pathologist [facility] Ventricular Rate 86 BPM [facility] Atrial Rate 86 BPM [facility] P-R Interval 120 ms [facility] QRS Duration ms 86 ms [facility] Q-T Interval ms 390 ms [facility] QTC Calculation (Bezet) 466 ms [facility] Calculated P [place] 64 degrees [facility] Calculated R [place] 71 degrees [facility] Calculated T [place] 70 degrees [facility] Interpretation EKG Normal sinus rhythm Normal ECG No previous ECGs available Confirmed by MARGARET GODINEZ, BRITTNY ([id number]) on 07/19/2019 1:32:00 PM [facility] 07/19/2019 3:55 AM CDT 07/19/2019 1:32 PM CDT Chris Mccullough MD ECG ORDERABLES [facility] * CBC W AUTO DIFFERENTIAL (07/19/2019 3:50 AM CDT) Pathologist [facility] WBC 8.0 4.4 - 10.7 x10E9/L 07/19/2019 5:47 AM CDT [facility] WBC Corrected 07/19/2019 5:47 AM CDT [facility] RBC 4.70 3.80 - 5.40 x10E12/L 07/19/2019 5:47 AM CDT [facility] Hemoglobin 14.9 12.0 - 17.6 gm/dL 07/19/2019 5:47 AM CDT [facility] Hematocrit 44.8 35.2 - 51.7 % 07/19/2019 5:47 AM CDT [facility] MCV 95.3 80.7 - 98.3 fl 07/19/2019 5:47 AM CDT [facility] MCH 31.7 26.7 - 34.0 pg 07/19/2019 5:47 AM CDT [facility] MCHC 33.3 30.8 - 35.9 gm/dL 07/19/2019 5:47 AM CDT [facility] Platelet Count 330 153 - 416 x10E9/L 07/19/2019 5:47 AM CDT [facility] RDW-CV 12.8 12.1 - 14.9 % 07/19/2019 5:47 AM CDT [facility] MPV 9.4 9.4 - 12.9 fl 07/19/2019 5:47 AM CDT [facility] Neutrophils % 55.9 44.0 - 73.0 % 07/19/2019 5:47 AM CDT [facility] Lymphocytes % 30.5 20.0 - 43.0 % 07/19/2019 5:47 AM CDT [facility] Monocytes % 12.1 5.0 - 13.0 % 07/19/2019 5:47 AM CDT [facility] Eosinophils % 0.9 0.0 - 6.0 % 07/19/2019 5:47 AM CDT [facility] Basophils % 0.3 0.0 - 2.0 % 07/19/2019 5:47 AM CDT [facility] Immature Granulocytes 0.3 0 - 1 % 07/19/2019 5:47 AM CDT [facility] Neutrophil Absolute 4.46 2.01 - 7.14 x10E9/L 07/19/2019 5:47 AM CDT [facility] Lymphocytes Absolute 2.43 1.07 - 3.94 x10E9/L 07/19/2019 5:47 AM CDT [facility] Monocytes Absolute 0.96 0.26 - 1.07 x10E9/L 07/19/2019 5:47 AM CDT [facility] Eosinophils Absolute 0.07 0 - 0.47 x10E9/L 07/19/2019 5:47 AM CDT [facility] Basophils Absolute 0.02 0 - 0.08 x10E9/L 07/19/2019 5:47 AM CDT [facility] Immature Granulocytes Absolute 0.02 0.00 - 0.06 x10E9/L 07/19/2019 5:47 AM CDT [facility] nRBC Auto 0 /100 WBC 07/19/2019 5:47 AM CDT [facility] Blood BLOOD SPECIMEN / Unknown Venipuncture / Unknown 07/19/2019 3:50 AM CDT 07/19/2019 5:39 AM CDT Chris Mccullough MD LAB - HEMATOLOGY OR DERABLES [facility] [address] [address] * (ABNORMAL) COMPREHENSIVE METABOLIC PANEL (07/19/2019 3:50 AM CDT) Glucose 138(H) 70 - 105 mg/dL 07/19/2019 6:01 AM CDT [facility] Sodium 138 136 - 145 mmol/L 07/19/2019 6:01 AM CDT [facility] Potassium 4.2 3.5 - 5.1 mmol/L 07/19/2019 6:01 AM CDT [facility] Chloride 104 98 - 107 mmol/L 07/19/2019 6:01 AM CDT [facility] CO2 23 23 - 31 mmol/L 07/19/2019 6:01 AM CDT [facility] Calcium 9.0 8.4 - 10.2 mg/dL 07/19/2019 6:01 AM CDT [facility] Anion Gap 11 8 - 16 mmol/L 07/19/2019 6:01 AM CDT [facility] BUN 6(L) 8.9 - 20.6 mg/dL 07/19/2019 6:01 AM CDT [facility] Creatinine 0.93 0.72 - 1.25 mg/dL 07/19/2019 6:01 AM CDT [facility] Alkaline Phosphatase 52 40 - 150 U/L 07/19/2019 6:01 AM CDT [facility] ALT 14 0 - 61 U/L 07/19/2019 6:01 AM CDT [facility] AST 21 5 - 34 U/L 07/19/2019 6:01 AM CDT [facility] Protein Total 6.7 6.4 - 8.3 gm/dL 07/19/2019 6:01 AM CDT [facility] Albumin 4.0 3.5 - 5.2 gm/dL 07/19/2019 6:01 AM CDT [facility] Bilirubin Total 0.6 0.2 - 1.2 mg/dL 07/19/2019 6:01 AM CDT [facility] eGFR by MDRD >60 >60 mL/min/1.7 3m2 07/19/2019 6:01 AM CDT [facility] eGFR by MDRD >60 >60 mL/min/1.7 3m2 07/19/2019 6:01 AM CDT [facility] Blood BLOOD SPECIMEN / Unknown Venipuncture / Unknown 07/19/2019 3:50 AM CDT 07/19/2019 5:40 AM CDT Chris Mccullough MD LAB - CHEMISTRY ORD ERABLES [facility] [address] [id number] * MAGNESIUM BLOOD (07/19/2019 3:50 AM CDT) Magnesium 1.8 1.6 - 2.6 mg/dL 07/19/2019 6:01 AM CDT [facility] Blood BLOOD SPECIMEN / Unknown Venipuncture / Unknown 07/19/2019 3:50 AM CDT 07/19/2019 5:40 AM CDT Chris Mccullough MD LAB - CHEMISTRY ORD ERABLES [facility] [address] [address] Care Teams Diesel Engine Tester Relationship Specialty Start Date End Date Emmanuel Lockwood PA [address] [place] [address] PCP - General Physician Catapult And Arresting Gear Officer 07/19/19
--- OUTSIDE RECORDS SUMMARY | 2024-11-19 00:49 | XMS_ITS | Referral Summary ---
Author Organization [facility] Address [address] [place] [address] Care Team Providers Care Home Appliance Washing Machine Mechanic Name Role Phone Emmanuel Lockwood Primary Care Provider [phone] Emmanuel Sherman MD Unavailable Jimbo Gomez MD Unavailable [phone] Allergies No known active allergies Medications albuterol [...] on file Legal Sex Male 11:46 AM TOOLING MECHANIC Gender Identity Not on file Sexual Orientation [...] cm (5' 11 ) 10/12/2023 3:48 PM TOOLING MECHANIC Body Mass Index 31.53 10/12/2023 3:48 PM TOOLING MECHANIC Plan of Treatment Not on file Insurance [facility] BLUE ACCESS O [facility] [employer] ACCESS OOS Member Subscriber Plan / Payer (Ef fective 2023-Present) Name:Emmanuel Sands Relation to Subscriber:Self Name:Emmanuel Sands Payer ID:[id number] (NAIC) Type:BC ALLIANCE Address: [facility] [id number] [id number] Care Teams Home Appliance Washing Machine Mechanic Relationship Specialty Start Date End Date Emmanuel Lockwood PA [address] [place] [address] PCP - General 12/03/19 Emmanuel Sherman MD [address] [place] [address] Surgeon Otolaryngology 01/26/23 Jimbo Gomez MD [id number] [facility] [address] [place] [address] Radiation Oncologist Radiation Oncology 02/27/23
--- OUTSIDE RECORDS SUMMARY | 2024-11-19 00:49 | XMS_ITS | Clinical Summary ---
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 INSTRUCTOR Gender Identity Not on file Sexual Orientation Not on file Last Filed Vital Signs Vital Sign Reading Time Taken Comments Blood Pressure 122/58 11/19/2019 11:24 AM BARBER INSTRUCTOR Pulse 91 11/19/2019 11:24 AM BARBER INSTRUCTOR Temperature 36.7 C (98 F) 11/19/2019 11:24 AM BARBER INSTRUCTOR Respiratory Rate 20 11/19/2019 11:24 AM BARBER INSTRUCTOR Oxygen Saturation 97% 11/19/2019 11:24 AM BARBER INSTRUCTOR Inhaled Oxygen Concentration - - Weight 85.7 kg (189 lb) 11/19/2019 11:24 AM BARBER INSTRUCTOR Height 177.8 cm (5' 10 ) 11/19/2019 11:24 AM BARBER INSTRUCTOR Body Mass Index 27.12 11/19/2019 11:24 AM BARBER INSTRUCTOR Plan of Treatment Health Maintenance Due Date [...] this topic Insurance MEDICAID [place] Care Teams Floor Supervisor Relationship Specialty Start Date End Date Provider, Unknown UNKNOWN PCP - General 11/19/19
== END 2024-11-19 00:35 | disposition short-term general hospital (02) ==
LOC: CHSED 11-19 00:47
PROVIDERS: Emergency Provider Family Medicine; PCP Physician Assistant
DX: S61.411A Laceration without foreign body of right hand, initial encounter (principal); F17.210 Nicotine dependence, cigarettes, uncomplicated; Z85.819 Personal history of malignant neoplasm of unspecified site of lip, oral cavity, and pharynx
CPT/HCPCS: 99285

== ENCOUNTER 2025-02-27 14:12 | Emergency (ER) | payer OTHER, SELFPAY ==
--- OUTSIDE RECORDS SUMMARY | 2025-02-27 14:16 | XMS_ITS | Clinical Summary ---
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 Gender Identity Not on file Sexual Orientation Not on file Last Filed Vital Signs Vital Sign Reading Time Taken Comments Blood Pressure 122/58 11/19/2019 11:24 AM TOLL REPAIRER CENTRAL OFFICE Pulse 91 11/19/2019 11:24 AM TOLL REPAIRER CENTRAL OFFICE Temperature 36.7 C (98 F) 11/19/2019 11:24 AM TOLL REPAIRER CENTRAL OFFICE Respiratory Rate 20 11/19/2019 11:24 AM TOLL REPAIRER CENTRAL OFFICE Oxygen Saturation 97% 11/19/2019 11:24 AM TOLL REPAIRER CENTRAL OFFICE Inhaled Oxygen Concentration - - Weight 85.7 kg (189 lb) 11/19/2019 11:24 AM TOLL REPAIRER CENTRAL OFFICE Height 177.8 cm (5' 10) 11/19/2019 11:24 AM TOLL REPAIRER CENTRAL OFFICE Body Mass Index 27.12 11/19/2019 11:24 AM TOLL REPAIRER CENTRAL OFFICE Plan of Treatment Health Maintenance Due Date [...] age to complete this topic Insurance MEDICAID [place] Care Teams Cloth Hand Relationship Specialty Start Date End Date Provider, Unknown UNKNOWN PCP - General 11/19/19
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
[2025-02-27 14:21] VITALS: BP 146/77; PULSE 90; RESP 18; TEMP 36.6; O2SAT 98
--- NOTE | 2025-02-27 14:52 | ED_ITS ---
HPI - General Adult General Chief complaint: Skin/Abscess/Foreign Body Stated complaint: Skin Sore Right Leg Source: patient Mode of arrival: ambulatory Limitations: no limitations History of Present Illness HPI narrative: Pt presents for evaluation of a wound to the anterior aspect of the right lower leg. Symptom onset twelve days ago. He grazed the area on his truck while wearing jeans. He has mild associated pain. No fever, chills, nausea, vomiting. He noted some purulent discharge from the area. He is not diabetic. He is up to date on tetanus. He has applied hydrogen peroxide to the area, last two days ago. Related Data Allergies Allergy/AdvReac Type Severity Reaction Status Date / Time No Known Allergies Allergy Verified 01/28/23 01:19 Review of Systems Review of Systems: CONSTITUTIONAL: Denies fever, chills, or sweats. EYES: Denies visual changes, redness, or discharge. ENT: Denies rhinorrhea, congestion, sore throat, or otalgia. CARDIOVASCULAR: Denies chest pain, palpitations, or edema. RESPIRATORY: Denies cough or dyspnea. GASTROINTESTINAL: Denies abdominal pain, nausea, vomiting, or diarrhea. GENITOURINARY: Denies dysuria or hematuria. SKIN: Reports abrasion to anterior aspect of the right lower leg with surrounding redness and recent purulent discharge MUSCULOSKELETAL: Denies back pain, joint pain, or myalgia. NEUROLOGIC: Denies headache, numbness, dizziness, or weakness. PSYCHIATRIC: Denies anxiety or depression. PMFSH Past Medical History Medical History Lip cancer Bilateral pneumonia Tobacco use Surgical History Surgical History No pertinent past surgical history Family History Family History Mother Family history non-contributory Social History Social History Smoking packs per day: 1.5 Smoking cigarettes per day: 30.0 Smoking status: Current every day smoker Substance use: never Living arrangements: with family Gender identity (if verbalized by the patient): Male Sexual Orientation (if Verbalized by the Patient): Straight or Heterosexual Spiritual care concerns: No Exam Narrative: GENERAL: Well-appearing, well-nourished, and in no acute distress. HEAD: Normocephalic, atraumatic. EYES: PERRLA and EOMI. ENT: Nares clear, no rhinorrhea or epistaxis. Mucous membranes moist. Oropharynx without tonsillar hypertrophy exudate or other lesions. Bilateral TMs pearly llamas nonbulging NECK: Supple. No adenopathy or masses. No carotid bruits or JVD CHEST: Clear to auscultation. No respiratory distress. No wheezes rales or rhonchi HEART: Regular rate and rhythm. No murmur heard. Normal peripheral pulses. ABDOMEN: Soft, nontender, nondistended, normal active bowel sounds. EXTREMITIES: Normal range of motion. No edema. SKIN: There is a 1.5x 1cm area of dried sanguinous drainage to anterior aspect of the right lower leg with 5x5cm of surrounding erythema. There is no purulence. NEURO: No focal deficits. Alert and oriented x3. PSYCH: Normal mood and affect. Course Course Emergency Course: This is a 54-year-old male who presented for evaluation of a wound to the anterior aspect of the right lower leg. He does have surrounding redness so will treat for cellulitis with bactrim and keflex. He should stop using hydrogen peroxide. He will follow up with primary care and was advised to go to the ER for worsening symptoms. Pt in agreement with plan of care. Level of Care: Express Care Visit Vital Signs Vital signs: Vital Signs Temperature 36.6 C 02/27/25 14:21 Pulse Rate 90 02/27/25 14:21 Respiratory Rate 18 02/27/25 14:21 Blood Pressure 146/77 H 02/27/25 14:21 Pulse Oximetry 98 02/27/25 14:21 Oxygen Delivery Room Air 02/27/25 14:21 Temperature 36.6 C 02/27/25 14:21 Pulse Rate 90 02/27/25 14:21 Respiratory Rate 18 02/27/25 14:21 Blood Pressure 146/77 H 02/27/25 14:21 Pulse Oximetry 98 02/27/25 14:21 Oxygen Delivery Room Air 02/27/25 14:21 Medical Decision Making Vital Signs Vital Signs: Vital Signs Temperature 36.6 C 02/27/25 14:21 Pulse Rate 90 02/27/25 14:21 Respiratory Rate 18 02/27/25 14:21 Blood Pressure 146/77 H 02/27/25 14:21 Pulse Oximetry 98 02/27/25 14:21 Oxygen Delivery Room Air 02/27/25 14:21 Temperature 36.6 C 02/27/25 14:21 Pulse Rate 90 02/27/25 14:21 Respiratory Rate 18 02/27/25 14:21 Blood Pressure 146/77 H 02/27/25 14:21 Pulse Oximetry 98 02/27/25 14:21 Oxygen Delivery Room Air 02/27/25 14:21 Discharge Plan Discharge Clinical Impression: Abrasion of leg, right, Cellulitis of leg, right Patient Disposition: Home Condition: Stable Instructions: Antibiotic Form, Cellulitis (ED), Abrasion (ED) Additional Instructions: WASH AREA TWICE PER DAY WITH ANTIBACTERIAL SOAP AND WATER PAT DRY APPLY NEOSPORIN DO NOT APPLY HYDROGEN PEROXIDE Patient Language: Dutch Prescriptions: New cephalexin 500 mg capsule 500 mg PO Q6H Qty: 40 0RF sulfamethoxazole-trimethoprim [Bactrim DS] 800-160 mg tablet 1 tablet PO Q12H Qty: 20 0RF No Action prednisone 20 mg tablet 20 mg PO DAILY Qty: 18 0RF Rx Instructions: take 3 tablets daily for 3 days, then 2 tablets daily for 3 days then 1 tablet daily for 3 days albuterol sulfate 90 mcg/actuation HFA aerosol inhaler 2 inh inhalation QID PRN (Reason: shortness of breath or wheezing) Qty: 8.5 0RF Follow-up/Referrals: Mandie,AMARJIT Turpin [Primary Care Provider] - Time of Disposition: 14:51
== END 2025-02-27 14:56 | disposition home or self-care (01) ==
PROVIDERS: Emergency Provider Nurse Practitioner; PCP Physician Assistant
DX: S80.811A Abrasion, right lower leg, initial encounter (principal); L03.115 Cellulitis of right lower limb; F17.210 Nicotine dependence, cigarettes, uncomplicated; Z87.898 Personal history of other specified conditions; X58.XXXA Exposure to other specified factors, initial encounter
CPT/HCPCS: 99213; G0463

== ENCOUNTER 2025-03-27 08:45 | Outpatient (RCR) | payer MEDICAID, OTHER, SELFPAY ==
--- NOTE | 2025-01-01 10:57 | OTOPEVAL1 ---
Assessment and note entered by Narendra Lockhart, TORY/Aly, CHADDT OT Evaluation Information 01/01/25 Assessment Status Evaluation Diagnosis S66.120D, S66.122D, S66.021D Subjective Information Patient lacerated the flexor tendons of his right thumb, index, and middle finger and underwent repair 7 weeks ago. He presents today in a dorsal blocking splint with orders to begin passive extension and to discontinue the orthosis. He is right handed. He is a local delivery truck driver, likes to play the guitar, and shoot pool. He reports residual pain, never gets to 0/10. Reported Pain Level Pain Score 3: Self Report Additional Pain Score Comments Patient reports his pain is dull and tingly. He reports the pain can become sharp/shooting intermittently. Assessment OT Clinical Summary Patient referred to OT following right thumb, index, and middle finger flexor tendon laceration s/p repair 7 weeks ago. He presents with residual pain, edema, weakness, and scar immobility that inhibit functional use of his dominant hand for ADLs, driving, and playing guitar. Skilled OT indicated to maximize functional flexibility, strength, and use of his right hand. Plan of Care Interventions Therapeutic Exercise,Manual Therapy,Neuro Re- education,Therapeutic Activities,Check Out for Orthotic/Prosthetic,Ultrasound,Paraffin OT Services Indicated Yes Treatment Frequency and 1x/week for 7 visits Duration These treatments will address the objective and functional deficits as defined above. The patient will be advanced safely and appropriately in order for the patient to progress towards his/her prior level of function. Additional exercises will be introduced and as well as a comprehensive home exercise program upon discharge, if needed, ?to ensure carryover of functional gains achieved in the clinic. This treatment plan has been reviewed and agreement upon by the patient.
--- NOTE | 2025-01-01 10:57 | OPREHPOC ---
Outpatient Therapy Plan of Care This is a Multidisciplinary Plan of Care that may contain components documented by all disciplines (PT, OT, and ST.) OT Problem 1 OT Problem #1 Knowledge Deficit OT Goal 1 Goal / Goal Update Patient to be independent with instructed materials. Target Visit 7 OT Problem 2 OT Problem #2 Pain OT Goal 1 Goal / Goal Update Patient to be independent with non-medication pain management. Target Visit 7 OT Problem 3 OT Problem #3 Impaired Flexibility OT Goal 1 Goal / Goal Update Patient to improve (R) finger extension to neutral /0* at the MCP joints. Target Visit 7 OT Problem 4 OT Problem #4 Impaired Strength OT Goal 1 Goal / Goal Update Patient to improve functional finger flexion/clinical cytopathologist strength for ADLs as demonstrated by: - being able to make a fist, touching his finger tips to his palm - being able to complete clinical cytopathologist and pinch strengthening with red putty x5 minutes without pain Target Visit 7
--- NOTE | 2025-01-29 10:28 | PCOTNOTE ---
Patient did not show up for scheduled appointment this date. Called patient who reports he got a flat tire.
--- NOTE | 2025-02-23 10:58 | OTOPPROG ---
Assessment and note entered by Narendra Lockhart, TORY/Aly, CHADDT OT Progress Update 02/23/25 Assessment Status Progress Diagnosis S66.120D, S66.122D, S66.021D Subjective Information HPI: Patient lacerated the flexor tendons of his right thumb, index, and middle finger and underwent repair 13 weeks ago. He has progressed out of the splint and is trying to use his hand as much as possible. 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 He reports last week he worked 2 days and he had an onset of swelling, turned purple, and he has not worked this week at all due to work not wanting him to return. He is to call work back in a couple of weeks to let them know how he's doing. He saw his PCP yesterday. He states he has tapered off of the Gabapentin and has noticed an increase in his hand pain. Assessment OT Clinical Summary Patient referred to OT following right thumb, index, and middle finger flexor tendon laceration s/p repair 13 weeks ago. He has progressed to being able to make a functional fist and hook fist with digits III-V. Index has 2 cm gap with a hook fist and a 3 cm gap with a composite fist. His contract paralegal strength has improved to 45 lbs. Sensation is severely limited - measured with the Hoxie Conrad monofilament test, t of thumb measured 4 .56 (loss of protective), tip of index and middle measured 6.65 (deep pressure only). He is experiencing 8-10/10 pain on a daily basis and continues to have edema that is limiting functional use as well as circulation (patient reports of hand turning purple). Continued skilled OT indicated to maximize functional flexibility, strength, and use of his right hand. Plan of Care Interventions Therapeutic Exercise,Manual Therapy,Neuro Re- education,Therapeutic Activities,Ultrasound, Paraffin OT Services Indicated Yes Treatment Frequency and 1x/week for 5 visits Duration These treatments will address the objective and functional deficits as defined above. The patient will be advanced safely and appropriately in order for the patient to progress towards his/her prior level of function. Additional exercises will be introduced and as well as a comprehensive home exercise program upon discharge, if needed, ?to ensure carryover of functional gains achieved in the clinic. This treatment plan has been reviewed and agreement upon by the patient.
--- NOTE | 2025-02-23 10:59 | OPREHPOC ---
Outpatient Therapy Plan of Care This is a Multidisciplinary Plan of Care that may contain components documented by all disciplines (PT, OT, and ST.) OT Problem 1 OT Problem #1 Knowledge Deficit OT Goal 1 Goal / Goal Update Patient to be independent with instructed materials. ---OT POC UPDATE 02/23/25--- Met, questionable compliance with HEP Target Visit 13 OT Problem 2 OT Problem #2 Pain OT Goal 1 Goal / Goal Update Patient to be independent with non-medication pain management. ---OT POC UPDATE 02/23/25--- Met, pt continues to have high levels of pain due to tapering off his pain medication, continue to treat pain Target Visit 13 OT Problem 3 OT Problem #3 Impaired Flexibility OT Goal 1 Goal / Goal Update Patient to improve (R) finger extension to neutral /0* at the MCP joints. ---OT POC UPDATE 02/23/25--- Met Target Visit 7 Progress Met OT Problem 4 OT Problem #4 Impaired Strength OT Goal 1 Goal / Goal Update Patient to improve functional finger flexion/senior enlisted advisor strength for ADLs as demonstrated by: 1. being able to make a fist, touching his finger tips to his palm 2. being able to complete senior enlisted advisor and pinch strengthening with red putty x5 minutes without pain ---OT POC UPDATE 02/23/25--- 1. met with digits III-V, 3 cm away with index 2. not met, new goal: Pt to increase (R) Spinning Frame Tender strength to 55 lbs. Target Visit 13
== END 2025-04-01 23:59 | disposition home or self-care (01) ==
LOC: ANHOT 08:45
PROVIDERS: PCP Physician Assistant
DX: S66.120D Laceration of flexor muscle, fascia and tendon of right index finger at wrist and hand level, subsequent encounter (principal)
CPT/HCPCS: 97018; 97110; 97140; 97166; 97530

== ENCOUNTER 2025-04-02 07:28 | Outpatient (RCR) | payer OTHER, SELFPAY ==
--- NOTE | 2025-04-02 11:00 | OTOPDC ---
Assessment and note entered by Narendra Lockhart, OTR/Aly, LUIS OT D/C Summary 04/02/25 Assessment Status Discharge Diagnosis S66.120D, S66.122D, S66.021D Subjective Information HPI: Patient lacerated the flexor tendons of his right thumb, index, and middle finger and underwent repair 19 weeks ago. He reports his hand function is getting better. 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 He reports some swelling in the hand after this, but no color changes in his hand like he was experiencing when he used the hand for heavier tasks. He is back to cooking and doing dishes, but notes its slower than it used to be. He reports his sensation is not back to normal and has a hard time using/ manipulating finger nail clippers and doing buttons due to the lack of feeling at the finger tips. He is experiencing intermittent nerve pains in the tips of digits I-III. He reports constant tingling in these digits. ROM: wrist flexion 60 deg. wrist extension 50 deg. composite fist is WNL for digits III-V composite fist for index finger improved from 3 cm gap to 2 cm gap hook fist is WNL for digits for III-V hook fist for index finger remained at 2 cm gap actively (R) Glass Tube Bender strength improved from 45 to 64 lbs. Reported Pain Level Pain Score 4: Self Report Additional Pain Score Comments Patient reports his pain is dull and tingly. He reports the pain can become sharp/shooting intermittently. Assessment OT Clinical Summary Patient referred to OT following right thumb, index, and middle finger flexor tendon laceration s/p repair 11/19/24. He has progressed to being able to make a functional fist and hook fist with digits III-V. Index has 2 cm gap with a hook fist and a 2 cm gap with a composite fist. His territory outside sales manager strength has improved to 64 lbs. Sensation as measured with the [place] Conrad monofilament test, demonstrates improvements: Tip of thumb measured 4.31 (diminished protective) - improved from 4.56 loss of protective. Tip of index measured 4.56 (loss of protective) - improved from 6.65 deep pressure only. Tip of middle measured 4.31 (diminished protective) - improved from 6.65 deep pressure only. Reviewed HEP today and discussed with patient the most important exercises to continue to focus on. He verbalizes good understanding. At this time, D/ C OT with goals met and with patient independent with all materials. Plan of Care OT Services Indicated No
== END 2025-04-02 14:41 | disposition home or self-care (01) ==
LOC: ANHOT 07:28
PROVIDERS: PCP Physician Assistant
DX: S66.120D Laceration of flexor muscle, fascia and tendon of right index finger at wrist and hand level, subsequent encounter (principal)
CPT/HCPCS: 97018; 97110; 97140

== ENCOUNTER 2025-07-11 14:42 | Emergency (ER) | payer OTHER, SELFPAY ==
--- NOTE | ~2025-07-11 | XR_ITS ---
XR hand RT min 3V INDICATION: injury . COMPARISON: None. FINDINGS: Frontal, lateral, and oblique views of the right hand demonstrate linear lucencies through the distal aspect of the proximal phalanx of the thumb may represent a nondisplaced fracture. Degenerative changes with joint space narrowing are noted. IMPRESSION: Radiographic examination of the right hand demonstrate questionable nondisplaced fracture through the distal aspect of the proximal phalanx of the thumb. Reviewed, dictated and finalized at location S. IMPRESSION: Radiographic examination of the right hand demonstrate questionable nondisplace d fracture through the distal aspect of the proximal phalanx of the thumb.
[2025-07-11 14:43] VITALS: BP 147/102; PULSE 86; RESP 20; TEMP 36.7; O2SAT 96
--- NOTE | 2025-07-11 14:46 | ED_ITS ---
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 No other injuries. Patient has not much feeling in his right hand from an injury to the palm surface and repair. Tetanus up-to-date. complaint: injury to: right, hand and finger Onset (ago): hour(s) (Three) Other injuries: none Place: work Severity: mild Severity scale (1-10): 3 Relieving factors: immobilization Exacerbating factors: movement of extremity Context: fall and injury Associated symptoms: denies other symptoms Treatments prior to arrival: other (None) Related Data Allergies Allergy/AdvReac Type Severity Reaction Status Date / Time No Known Allergies Allergy Verified 07/11/25 14:47 Review of Systems Review of Systems: All systems reviewed & are unremarkable except as noted in HPI and below Constitutional: Constitutional: Reports no additional constitutional complaints Eyes: Eyes: Reports no additional eye complaints ENT: Reports system reviewed and no additional complaints, except as documented Cardiovascular: Cardiovascular: Reports no additional cardiovascular complaints Respiratory: Respiratory: Reports no additional respiratory complaints Gastrointestinal: Gastrointestinal: Reports no additional gastrointestinal complaints Genitourinary: Genitourinary: Reports no additional male genitourinary complaints Musculoskeletal: Musculoskeletal: Reports no additional musculoskeletal complaints Integumentary/Breasts: Skin/Breast: Reports system reviewed and no additional complaints, except as docu Neurologic: Reports system reviewed and no additional complaints, except as documented Psychiatric: Psychiatric: Reports no additional psychiatric complaints Endocrine: Endocrine: Reports no additional endocrine complaints Hematologic/Lymphatic: Hematologic/Lymphatic: Reports no additional hematologic/lymphatic complaints Allergic/Immunologic: Allergic/Immunologic: Reports no additional allergic/immunologic complaints PMFSH Past Medical History Medical History Lip cancer Bilateral pneumonia Tobacco use Surgical History Surgical History No pertinent past surgical history Family History Family History Mother Family history non-contributory Social History Social History Smoking packs per day: 1.5 Smoking cigarettes per day: 30.0 Smoking status: Current every day smoker Substance use: never Living arrangements: with family Gender identity (if verbalized by the patient): Male Sexual Orientation (if Verbalized by the Patient): Straight or Heterosexual Spiritual care concerns: No Exam Const: General: healthy appearing Nutritional Appearance: well nourished Orientation/consciousness: patient oriented x3 HENMT: Head: normal to inspection Ears: external ears normal Face/Nose/Sinus: Normal external nose present Eyes: Conjunctivae: conjunctivae normal Pupils: Equal, round and reactive pupils present EOM: EOMs intact bilaterally Neck: Neck: normal visual inspection Chest: Chest palpation & inspection: normal inspection of the chest Resp: Effort & Inspection: normal respiratory effort and not labored Auscultation: clear to auscultation bilaterally and no crackles Cardio: Rate: regular rate Rhythm: regular rhythm Heart sounds: no murmurs GI: Inspection: non-distended GI Palp: Yes Soft to palpation and No Tenderness to palpation present (GI) Auscultation: normal bowel sounds : General: Yes bladder normal to palpation Back/Spine/Pelvis: Back: no CVA tenderness Skin: General skin exam: normal color Rashes: no rashes Wounds: wound noted Other: Right forearm has a small skin tear without bleeding or infection from the fall Neuro: General: patient oriented x3, moves all extremities and no meningeal signs Extrem: General: abnormal to inspection, no clubbing, cyanosis or edema and no pedal edema Other: Right ring finger has some mild ecchymosis and swelling after the injury/fall Psych: Mental Status: mental status grossly normal Affect: normal affect Attitude: cooperative Course Vital Signs Vital signs: Vital Signs Temperature 36.7 C 07/11/25 14:43 Pulse Rate 86 07/11/25 14:43 Respiratory Rate 20 07/11/25 14:43 Blood Pressure 147/102 H 07/11/25 14:43 Pulse Oximetry 96 07/11/25 14:43 Oxygen Delivery Room Air 07/11/25 14:43 Temperature 36.7 C 07/11/25 14:43 Pulse Rate 86 07/11/25 14:43 Respiratory Rate 20 07/11/25 14:43 Blood Pressure 147/102 H 07/11/25 14:43 Pulse Oximetry 96 07/11/25 14:43 Oxygen Delivery Room Air 07/11/25 14:43 MDM - Extremity Injury (Upper) MDM Narrative Medical decision making narrative: Patient is a 54-year-old male with a right hand injury after falling down a ladder and missing his foot on the steps today. X-ray. Thumb metal foam splint. Repeat x-ray in the next week or 2. Imaging Data Attestation: I personally reviewed and interpreted this imaging study as follows: Radiologist's impression: X-ray right hand shows right proximal phalanx thumb shows a nondisplaced fracture and otherwise negative for the other fingers and hand Discharge Plan Discharge Clinical Impression: Fracture of thumb Qualifiers: Encounter type: initial encounter Fracture type: closed Phalanx: proximal Fracture alignment: nondisplaced Laterality: right Qualified Code(s): S62.514A - Nondisplaced fracture of proximal phalanx of right thumb, initial encounter for closed fracture Patient Disposition: Home Condition: Stable Instructions: Finger Fracture (ED) Additional Instructions: Please follow-up with the primary doctor in the next week. I suggest a repeat x-ray of the right hand to look at the thumb again for follow-up. Need to see an orthopedic surgeon. Also wear the thumb splint as much as possible until the final x-ray is been done and planned. Patient Language: Greenlandic Follow-up/Referrals: Mandie,AMARJIT Turpin [Primary Care Provider] Time of Disposition: 15:33
[2025-07-11 15:34] VITALS: BP 139/106; PULSE 81; RESP 16; O2SAT 95
--- OUTSIDE RECORDS SUMMARY | 2025-07-11 16:57 | XMS_ITS ---
Author Organization [facility] Address [address] [place] [address] Care Team Providers Care Controller Instructor Name Role Phone Emmanuel Lockwood Primary Care Provider [phone] Emmanuel Sherman MD Unavailable [phone] Jimbo Gomez MD Unavailable Active Problems Problem Noted Date Diagnosed Date [...]
--- OUTSIDE RECORDS SUMMARY | 2025-07-11 16:57 | XMS_ITS | Clinical Summary ---
Author Organization [facility] Address [address] [place] [address] Care Team Providers Care Electronic Pagination System Operator Name Role Phone Emmanuel Lockwood Primary Care Provider [phone] Source Comments [facility],non-owned Affiliates and Associated Physician Practices is amultiple site organization consisting of ambulatory clinics and hospital sitesin [place], [place], [place] and [place]. This disclosure is being madepursuant to the Care Everywhere program and may not contain all information available regarding this patient. Last updated 18.[facility] Allergies No known active allergies Social History Tobacco Use Types Packs/Day Years Used Date Smoking Tobacco: Never Assessed Sex and Gender Information Value Date Recorded Sex Assigned at Not on file Legal Sex Male 3:35 AM CDT Gender Identity Not on file Sexual Orientation [...] 3:44 AM CDT Height 180.3 cm (5' 11) 07/19/2019 3:44 AM CDT Body Mass Index 26.36 07/19/2019 3:44 AM CDT Plan of Treatment Health Maintenance Due Date Last Done Comments COLOGUARD (AGES 45-75) - COL ON CA SCREENING [...] 12/16/2019 ZOSTER VACCINE (1 of 2) 12/16/2019 DEPRESSION SCREENING 09/27/2024 COVID-19 VACCINE (1 - 2023-2 5 season) 2025 INFLUENZA VACCINE (#1) 2025 HIB VACCINE Aged Out No longer eligi ble based on patient's age to complete this topic HPV VACCINE Aged Out No longer eligi ble based on patient's age to complete this topic MENINGOCOCCAL (Group B) VACC INE SHARED DECISION-MAKING Aged Out No longer eligibl e based on patient's age to complete this topic MENINGOCOCCAL GROUPS A/C/Y/W VACCINE Aged Out No longer eligible b ased on patient's age to complete this topic Insurance [facility] Care Teams Electronic Pagination System Operator Relationship Specialty Start Date End Date Emmanuel Lockwood PA [address] [place] [address] PCP - General Physician Window Shade Estimator 07/19/19
--- OUTSIDE RECORDS SUMMARY | 2025-07-11 16:57 | XMS_ITS | Clinical Summary ---
Author Organization [facility] Address [address] [place] [address] Care Team Providers Care Inspector Advanced Composite Name Role Phone Emmanuel Lockwood Primary Care Provider [phone] Emmanuel Sherman MD Unavailable [phone] Jimbo Gomez MD Unavailable [phone] Allergies No known active allergies Medications albuterol [...] Signed by Jimbo Gomez MD on 07/28/2023 Encounters Date Type Department Care Team Description 06/25/[address] [facility] Radiation Oncology [address] [place] [address] Lu Powers RN 06/22/2025 5:03 PM CDT - 06/22/2025 11:59 PM CDT Hospital Encounter [facility] [address] [place] [address] Squamous cell carcinoma of lip; Personal history of irradiation Discharge Disposition: Discharge to home or self care 06/05/[address] [facility] Radiation Oncology [address] [place] [address] Rosita Layton NP from Last 3 Months Surgical History Surgery Date Site/Laterality Comments NO [...] on file Legal Sex Male 11:46 AM SAP BUSINESS OBJECTS CONSULTANT Gender Identity Not on file Sexual Orientation [...] 2:44 PM CDT Height 180.3 cm (5' 11) 10/12/2023 3: 48 PM SAP BUSINESS OBJECTS CONSULTANT Body Mass Index 31.53 10/12/2023 3:48 PM SAP BUSINESS OBJECTS CONSULTANT Plan of Treatment Health Maintenance Due Date Last Done Comments Colon Cancer Screening-Colonoscopy 1969 Depression Screening 1969 Hepatitis C Screening 1969 Prostate Cancer Screening-PSA 1969 DTaP/Tdap/Td Vaccine (1 - Tdap) 1980 Hepatitis B Screening 12/16/1987 Regular Well Visit/Exam 18-64 12/16/1987 Lung Cancer Screening 12/16/2019 Zoster Vaccine (1 of 2) 12/16/2019 Covid-19 Vaccine (4 - 2024-2 6 season) 2025 07/28/2021, 01/19/2021, 12/22/2020 Influenza Vaccine (#1) 2025 Pneumococcal vaccine <65 Aged Out No longer eligible based on patient's age to complete this topic Procedures Procedure Name Priority Date/Time Associated Diagnosis Comments CT CHEST WO CONTRAST Schedule Routine, Read Routine (OP Routine) 06/22/2025 5:16 PM CDT 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 Stable enlarged right paratracheal node probably reactive. No interval thoracic metastatic disease in limitations of unenhanced CT. Mild multivessel coronary artery calcification. Electronically signed by: Shawanda De La Rosa M.D. 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 2-D Coronal and sagittal reformatted images were performed. Comparison: CT chest 06/14/2024 Findings: Normal heart size noted.There is no pericardial effusion Nonaneurysmal aorta noted .Mild multivessel coronary artery calcification is seen. Right lower paratracheal node 15 mm short axis with asymmetric fat attenuation and smaller mediastinal nodes appear unchanged. No consolidation or effusion noted..A 2 mm right lower lobe subpleural nodule image 200 series 2 is unchanged. Calcified middle lobe granuloma again noted. No interval pulmonary nodule is seen. The bony thorax is unremarkable.. The imaged upper abdomen is unremarkable. 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 2-D Coronal and sagittal reformatted images were performed. Comparison: CT chest 06/14/2024 Findings: Normal heart size noted.There is no pericardial effusion Nonaneurysmal aorta noted .Mild multivessel coronary artery calcification is seen. Right lower paratracheal node 15 mm short axis with asymmetric fat attenuation and smaller mediastinal nodes appear unchanged. No consolidation or effusion noted..A 2 mm right lower lobe subpleural nodule image 200 series 2 is unchanged. Calcified middle lobe granuloma again noted. No interval pulmonary nodule is seen. The bony thorax is unremarkable.. The imaged upper abdomen is unremarkable. IMPRESSION: Small stable right lower lobe nodule. Stable enlarged right paratracheal node probably reactive. No interval thoracic metastatic disease in limitations of unenhanced CT. Mild multivessel coronary artery calcification. Electronically signed by: Shawanda De La Rosa M.D. Nikole Recinos Hightower PHYSICIAN ALLERGIST IMMUNOLOGIST IMG CT PROCEDURES Fin al Result from Last 3 Months Insurance [facility] Care Teams Inspector Advanced Composite Relationship Specialty Start Date End Date Emmanuel Lockwood PA [address] [place] [address] PCP - General 12/03/19 Emmanuel Sherman MD [address] [place] [address] Surgeon Otolaryngology 01/26/23 Jimbo Gomez MD [address] [place] [address] Radiation Oncologist Radiation Oncology 02/27/23
--- OUTSIDE RECORDS SUMMARY | 2025-07-11 16:57 | XMS_ITS | Clinical Summary ---
Author Organization [facility] Address [address] [place] [address] Phone Care Team Providers Care Slot Host Name Role Phone Provider, Unknown Primary Care [...] on file Legal Sex Male 10:50 AM SUPPLIER QUALITY MANAGER Gender Identity Not on file Sexual Orientation Not on file Last Filed Vital Signs Vital Sign Reading Time Taken Comments Blood Pressure 122/58 11/19/2019 11:24 AM SUPPLIER QUALITY MANAGER Pulse 91 11/19/2019 11:24 AM SUPPLIER QUALITY MANAGER Temperature 36.7 C (98 F) 11/19/2019 11:24 AM SUPPLIER QUALITY MANAGER Respiratory Rate 20 11/19/2019 11:24 AM SUPPLIER QUALITY MANAGER Oxygen Saturation 97% 11/19/2019 11:24 AM SUPPLIER QUALITY MANAGER Inhaled Oxygen Concentration - - Weight 85.7 kg (189 lb) 11/19/2019 11:24 AM SUPPLIER QUALITY MANAGER Height 177.8 cm (5' 10) 11/19/2019 11:24 AM SUPPLIER QUALITY MANAGER Body Mass Index 27.12 11/19/2019 11:24 AM SUPPLIER QUALITY MANAGER Plan of Treatment Health Maintenance Due Date Last Done Comments Hepatitis C Virus (HCV) Screening 1970 TdaP Immunization 1969 Hepatitis B Immunization (1 of 3 - 19+ 3-dose series) 1988 Cologuard 2014 Colonoscopy 2014 Colorectal Cancer Screening 2014 Immunochemical Fecal Occult Blood 2014 Pneumococcal Immunization (5 0+ years) (1 of 1 - PCV) 12/16/2019 Zoster Immunization (1 of 2) 12/16/2019 Influenza Immunization (#1) 2025 SARS-COV-2 Immunization (4 - 2024- season) 2025 07/28/2021, 01/19/2021, 12/22/2020 Respiratory Syncytial Virus (RSV) Immunization (Adult) (1 - 1-dose 75+ series) 2044 Human Papillomavirus (HPV) Immunization Aged Out No longer eligible b ased on patient's age to complete this topic Meningococcal Immunization (ACWY) Aged Out No longer eligible b ased on patient's age to complete this topic Rotavirus Immunization Aged Out No lo nger eligible based on patient's age to complete this topic Insurance [place]ICAID [place] Care Teams Slot Host Relationship Specialty Start Date End Date Provider, Unknown UNKNOWN PCP - General 11/19/19
--- OUTSIDE RECORDS SUMMARY | 2025-07-11 17:31 | XMS_ITS | Clinical Summary ---
Author Organization [facility] Address [address] [place] [address] Care Team Providers Care Ship Engines Operating Engineer Name Role Phone Emmanuel Lockwood Primary Care Provider [phone] Emmanuel Sherman MD Unavailable [phone] Jimbo Gomez MD Unavailable Allergies No known active allergies Medications albuterol [...] [facility] Radiation Oncology [address] [place] [address] Lu Powers RN 06/22/2025 5:03 PM CDT - 06/22/2025 11:59 PM CDT Hospital Encounter [facility] Imaging and Radiology [address] [place] [address] Squamous cell carcinoma of lip; Personal history of irradiation Discharge Disposition: Discharge to home or self care 06/05/[address] [facility] Radiation Oncology [address] [place] [address] Rosita Layton NP from Last [...] on file Legal Sex Male 11:46 AM RIB CHOPPER Gender Identity Not on file Sexual Orientation [...] cm (5' 11) 10/12/2023 3: 48 PM RIB CHOPPER Body Mass Index 31.53 10/12/2023 3:48 PM RIB CHOPPER Plan of Treatment Health Maintenance Due Date [...] De La Rosa M.D. Nikole Recinos Hightower REHABILITATION ENGINEER IMG CT PROCEDURES Fin al Result from Last 3 Months Insurance [facility] Care Teams Ship Engines Operating Engineer Relationship Specialty Start Date End Date Emmanuel Lockwood PA [address] [place] [address] PCP - General 12/03/19 Emmanuel Sherman MD [address] [place] [address] Surgeon Otolaryngology 01/26/23 Jimbo Gomez MD [address] [place] [address] Radiation Oncologist Radiation Oncology 02/27/23
--- OUTSIDE RECORDS SUMMARY | 2025-07-11 17:31 | XMS_ITS ---
Author Organization [facility] Address [address] [place] [address] Care Team Providers Care Water/Wastewater Project Engineer Name Role Phone Emmanuel Lockwood Primary Care Provider [phone] Emmanuel Sherman MD Unavailable [phone] Jimbo Gomez MD Unavailable [phone] Active Problems Problem Noted Date Diagnosed Date [...]
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
--- OUTSIDE RECORDS SUMMARY | 2025-07-11 17:31 | XMS_ITS | Clinical Summary ---
Author Organization [facility] Address [address] [facility] [place] [address] Care Team Providers Care Natural Sciences Professor Name Role Phone Emmanuel Lockwood Primary Care Provider [phone] Source Comments [facility],non-owned Affiliates and Associated Physician Practices is amultiple site organization consisting of ambulatory clinics and hospital sitesin [place], [place], [place] and [place]. This disclosure is being madepursuant to the Care Everywhere program and may not contain all information available regarding this patient. Last updated 18.[facility] [employer] Allergies No known active allergies Social History [...] patient's age to complete this topic Insurance [facility] Care Teams Natural Sciences Professor Relationship Specialty Start Date End Date Emmanuel Lockwood PA [address] [place] [address] PCP - General Physician Returned Goods Receiving Clerk 07/19/19
--- OUTSIDE RECORDS SUMMARY | 2025-07-11 17:31 | XMS_ITS | Clinical Summary ---
Author Organization [facility] Address [address] [place] [address] Phone Care Team Providers Care Healthcare Administration Intern Name Role Phone Provider, Unknown Primary Care [...] on file Legal Sex Male 10:50 AM RETAIL ADVERTISING SALES MANAGER Gender Identity Not on file Sexual Orientation Not on file Last Filed Vital Signs Vital Sign Reading Time Taken Comments Blood Pressure 122/58 11/19/2019 11:24 AM RETAIL ADVERTISING SALES MANAGER Pulse 91 11/19/2019 11:24 AM RETAIL ADVERTISING SALES MANAGER Temperature 36.7 C (98 F) 11/19/2019 11:24 AM RETAIL ADVERTISING SALES MANAGER Respiratory Rate 20 11/19/2019 11:24 AM RETAIL ADVERTISING SALES MANAGER Oxygen Saturation 97% 11/19/2019 11:24 AM RETAIL ADVERTISING SALES MANAGER Inhaled Oxygen Concentration - - Weight 85.7 kg (189 lb) 11/19/2019 11:24 AM RETAIL ADVERTISING SALES MANAGER Height 177.8 cm (5' 10) 11/19/2019 11:24 AM RETAIL ADVERTISING SALES MANAGER Body Mass Index 27.12 11/19/2019 11:24 AM RETAIL ADVERTISING SALES MANAGER Plan of Treatment Health Maintenance Due [...] this topic Insurance MEDICAID [place] Care Teams Healthcare Administration Intern Relationship Specialty Start Date End Date Provider, Unknown UNKNOWN PCP - General 11/19/19
== END 2025-07-11 15:37 | disposition home or self-care (01) ==
PROVIDERS: Emergency Provider Emergency Medicine; PCP Physician Assistant
DX: S62.514A Nondisplaced fracture of proximal phalanx of right thumb, initial encounter for closed fracture (principal); F17.210 Nicotine dependence, cigarettes, uncomplicated; X58.XXXA Exposure to other specified factors, initial encounter
CPT/HCPCS: 29130; 73130; 99284

== ENCOUNTER 2025-09-07 18:16 | Emergency (ER) | payer OTHER, SELFPAY ==
--- OUTSIDE RECORDS SUMMARY | 2025-09-07 18:21 | XMS_ITS | Clinical Summary ---
Author Organization [facility] Address [address] [place] [address] Care Team Providers Care Conduit Reamer Operator Name Role Phone Emmanuel Lockwood Primary Care Provider Emmanuel Sherman MD Unavailable [phone] Lan Lau MD PhD Unavailable [phone] Olegario Barker MD Unavailable [phone] Allergies No known active allergies Medications albuterol HFA (ProAir HFA) 90 mcg/actuation inhalerIndicati ons:Wheezing Inhale 2 puffs every 4 (four) hours as needed for wheezing or shortness of breath 8.5 g Active ibuprofen 200 mg tab/capIndicati ons:Anti-inflam matory Take 4 tablet/capsule (800 mg total) by mouth every 8 (eight) hours as needed for pain Active busPIRone (BUSPAR) 10 mg tablet Take [...] Encounters Date Type Department Care Team Description 07/30/2025 1:00 PM CIRCUIT BREAKER SUPERVISOR Office Visit [facility] Radiation Oncology [address] [place] [address] Rosita Layton NP Squamous cell carcinoma of lip (Primary Dx); Former smoker 06/25/2025 Telephone [facility] Radiation Oncology [address] [place] [address] Lu Powers RN 06/22/2025 5:03 PM CDT - 06/22/2025 11:59 PM CDT Hospital Encounter [facility] Imaging and Radiology [address] [place] [address] Squamous cell carcinoma of lip; Personal history of irradiation Discharge Disposition: Discharge to home or self care from Last 3 Months Surgical History Surgery [...] on file Legal Sex Male 11:46 AM CIRCUIT BREAKER SUPERVISOR Gender Identity Not on file Sexual Orientation Not on file Last Filed Vital Signs Vital Sign Reading Time Taken Comments Blood Pressure 114/74 07/30/2025 1:25 PM CIRCUIT BREAKER SUPERVISOR Pulse 104 07/30/2025 1:25 PM CIRCUIT BREAKER SUPERVISOR Temperature 37 C (98.6 F) 07/30/2025 1:25 PM CIRCUIT BREAKER SUPERVISOR Respiratory Rate 18 07/30/2025 1:25 PM CIRCUIT BREAKER SUPERVISOR Oxygen Saturation 98% 07/30/2025 1:25 PM CIRCUIT BREAKER SUPERVISOR Inhaled Oxygen Concentration - - Weight 103.5 kg (228 lb 3.2 oz) 07/30/2025 1:25 PM CIRCUIT BREAKER SUPERVISOR Height 180.3 cm (5' 11) 10/12/2023 3:48 PM CIRCUIT BREAKER SUPERVISOR Body Mass Index 31.83 10/12/2023 3:48 PM CIRCUIT BREAKER SUPERVISOR Plan of Treatment Health Maintenance Due Date Last Done Comments Colon Cancer Screening-Colonoscopy 1969 Depression Screening 1969 Hepatitis C Screening 1969 Prostate Cancer Screening-PSA 1969 DTaP/Tdap/Td Vaccine (1 - Tdap) 1980 Hepatitis B Screening 12/16/1987 Regular Well Visit/Exam 18-64 12/16/1987 Lung Cancer Screening 12/16/2019 Zoster Vaccine (1 of 2) 12/16/2019 Covid-19 Vaccine (2024-2 6 season) 2025 07/28/2021, 01/19/2021, 12/22/2020 Influenza [...] by: Shawanda De La Rosa M.D. Nikole Hightower SENIOR DRUPAL DEVELOPER IMG CT PROCEDURES Fin al Result from Last 3 Months Insurance [facility] [employer] GENERIC Care Teams Conduit Reamer Operator Relationship Specialty Start Date End Date Emmanuel Lockwood PA [address] [place] [address] PCP - General 12/03/19 Emmanuel Sherman MD [address] [place] [address] Surgeon Otolaryngology 01/26/23 Lan Lau MD PhD [address] [facility] [place] [address] Radiation Oncologist Radiation Oncology 07/29/25 Olegario Barker MD [address] [address] Surgeon Otolaryngology 07/29/25
--- OUTSIDE RECORDS SUMMARY | 2025-09-07 18:21 | XMS_ITS ---
Author Organization [facility] Address [address] [place] [address] Care Team Providers Care Speeder Hand Name Role Phone Emmanuel Lockwood Primary Care Provider [phone] Emmanuel Sherman MD Unavailable [phone] Lan Lau MD PhD Unavailable [phone] Olegario Barker MD Unavailable [phone] Active Problems Problem Noted Date Diagnosed Date [...] No past plan information found. Radiation Treatments (No Episode) * Course C1 Lip 202203/26/2023 - 05/07/2023 Treatment Period Energy Fraction Dose Fractions Total Dose Plans Planned Lower Lip 03/26/2023 - 05/07/2023 200 30 / 6,000 Reference Points Delivered [id number]_6000 03/26/2023 - 05/07/2023 6,000 Lifetime Dose Tracking * Chemical Lifetime Dose Automatic Entry Manual Entr y DLP 1,511.3 mGycm 1,511.3 mGycm 0 mGycm
--- OUTSIDE RECORDS SUMMARY | 2025-09-07 18:21 | XMS_ITS | Clinical Summary ---
Author Organization [facility] Address [address] [place] [address] Phone Care Team Providers Care Night Cleaner Name Role Phone Provider, Unknown Primary Care [...] on file Legal Sex Male 10:50 AM RAILROAD MAINTENANCE CLERK Gender Identity Not on file Sexual Orientation Not on file Last Filed Vital Signs Vital Sign Reading Time Taken Comments Blood Pressure 122/58 11/19/2019 11:24 AM RAILROAD MAINTENANCE CLERK Pulse 91 11/19/2019 11:24 AM RAILROAD MAINTENANCE CLERK Temperature 36.7 C (98 F) 11/19/2019 11:24 AM RAILROAD MAINTENANCE CLERK Respiratory Rate 20 11/19/2019 11:24 AM RAILROAD MAINTENANCE CLERK Oxygen Saturation 97% 11/19/2019 11:24 AM RAILROAD MAINTENANCE CLERK Inhaled Oxygen Concentration - - Weight 85.7 kg (189 lb) 11/19/2019 11:24 AM RAILROAD MAINTENANCE CLERK Height 177.8 cm (5' 10) 11/19/2019 11:24 AM RAILROAD MAINTENANCE CLERK Body Mass Index 27.12 11/19/2019 11:24 AM RAILROAD MAINTENANCE CLERK Plan of Treatment Health Maintenance Due Date [...] 75+ series) 2044 Human Papillomavirus (HPV) Immunization (No Doses Required) Completed Meningococcal Immunization (ACWY) Aged Out No longer eligible b ased on patient's age to complete this topic Rotavirus Immunization Aged Out No lo nger eligible based on patient's age to complete this topic Insurance [place]ID [place] Care Teams Night Cleaner Relationship Specialty Start Date End Date Provider, Unknown UNKNOWN PCP - General 11/19/19
--- OUTSIDE RECORDS SUMMARY | 2025-09-07 18:21 | XMS_ITS | Clinical Summary ---
Author Organization [facility] Address [address] [place] [address] Care Team Providers Care Grocery Shopper Name Role Phone Emmanuel Lockwood Primary Care Provider [phone] Source Comments [facility],non-owned Affiliates and Associated Physician Practices is amultiple site organization consisting of ambulatory clinics and hospital sitesin [place], [place]. This disclosure is being madepursuant to the Care Everywhere program and may not contain all information available regarding this patient. Last updated 18.[facility] Allergies No known active allergies Social History [...] DEPRESSION SCREENING 09/27/2024 COVID-19 VACCINE (1 - 2024-2 6 season) 2025 INFLUENZA VACCINE (#1) 2025 HIB [...] patient's age to complete this topic Insurance [facility] Care Teams Grocery Shopper Relationship Specialty Start Date End Date Emmanuel Lockwood PA [address] [place] [address] PCP - General Physician Service Center Coordinator 07/19/19
[2025-09-07 18:25] VITALS: BP 132/94; PULSE 90; RESP 16; TEMP 36.4; O2SAT 98
[2025-09-07 18:42] LABS: EDCOVIDSCREEN Negative (Negative); EDINFLUASCREEN Negative (Negative); EDINFLUBSCREEN Negative (Negative)
--- NOTE | 2025-09-07 19:04 | ED.URI ---
HPI - URI/Sore Throat General Chief Complaint: Upper Respiratory Infection Stated Complaint: aches pains fever/nausea Time Seen by Provider: 09/07/25 18:30 Source: patient and RN notes reviewed Mode of arrival: ambulatory Limitations: no limitations History of Present Illness HPI Narrative: 54-year-old male patient presents Express Care complaining of upper respiratory symptoms for 3 days. Patient reports body aches, tactile fevers, congestion, cough, nausea, vomiting, diarrhea, and malaise. Patient denies any other upper respiratory symptoms, chest pain, difficulty breathing, abdominal pain, any other symptoms. Patient said he last vomited yesterday, he has been able to keep things down today drink fluids. Patient is taking [id number] Tylenol cold and flu medication with some relief. Patient denies any significant past medical problems. Related Data Allergies Allergy/AdvReac Type Severity Reaction Status Date / Time No Known Allergies Allergy Verified 09/07/25 18:19 Review of Systems Review of Systems: CONSTITUTIONAL: Positive for tactile fevers, body aches, chills and malaise. Negative for sweats. EYES: Denies visual changes, redness, or discharge. ENT: Denies rhinorrhea, sore throat, or otalgia. Positive for congestion. CARDIOVASCULAR: Denies chest pain, palpitations, dizziness, lightheadedness or edema. RESPIRATORY: Positive for cough. Negative for wheezing or Dyspnea. GASTROINTESTINAL: Denies abdominal pain,. Positive for nausea pain, vomiting, diarrhea GENITOURINARY: Denies dysuria or hematuria. SKIN: Denies rash or itching. MUSCULOSKELETAL: Denies back pain, joint pain, or myalgia. NEUROLOGIC: Denies headache, numbness, or weakness. PSYCHIATRIC: Denies anxiety or depression. All other systems reviewed are negative, except as documented in HPI. [facility] Past Medical History Medical History Lip cancer Bilateral pneumonia Tobacco use Surgical History Surgical History No pertinent past surgical history Family History Family History Mother Family history non-contributory Social History Social History Smoking packs per day: 1.5 Smoking cigarettes per day: 30.0 Smoking status: Current every day smoker Substance use: never Living arrangements: with family Gender identity (if verbalized by the patient): Male Sexual Orientation (if Verbalized by the Patient): Straight or Heterosexual Spiritual care concerns: No Comments At the time of my signature, I reviewed and agree with the nursing past medical, surgical, social, and family history. There is no relevant family history pertinent to the patient complaint. Exam Narrative: GENERAL: This is a well-nourished, well-developed adult, in no apparent distress. They are non ill-appearing, nontoxic appearing. HEAD: normocephalic, atraumatic. EYES: Sclera clear/white. Conjunctiva normal. Vision is grossly intact. Extraocular movements intact EARS: External ears normal, auditory canals clear and without drainage, TMs normal without perforation. Hearing grossly intact. NOSE: External nose normal with no obvious nasal discharge, nasal turbinates erythematous, no rhinorrhea. THROAT: Mucous membranes moist, posterior pharynx erythematous. Uvula midline. Postnasal drip present NECK: Neck supple, non-tender without lymphadenopathy, masses or thyromegaly. CARDIOVASCULAR: Regular rate and rhythm without murmurs, gallops, or rubs. RESPIRATORY: Clear to auscultation. Breath sounds equal bilaterally. No wheezes, rales, or rhonchi. GASTROINTESTINAL: Abdomen soft, non-tender, nondistended. SKIN: warm, Dry, intact with no suspicious lesions or rash, good texture and turgor. NEURO: awake, alert, and oriented to person, place and time. There were no obvious focal neurologic abnormalities. EXTREMITIES: No joint tenderness, effusion, or edema noted. BACK: Nontender without deformity. Course Course Level of Care: Express Care Visit Vital Signs Vital signs: Vital Signs Temperature 97.6 F 09/07/25 18: Pulse Rate 90 09/07/25 18: Respiratory Rate 16 09/07/25 18: Blood Pressure 132/94 H 09/07/25 18: Pulse Oximetry 98 09/07/25 18: Oxygen Delivery Room Air 09/07/25 18: Temperature 97.6 F 09/07/25 18: Pulse Rate 90 09/07/25 18: Respiratory Rate 16 09/07/25 18: Blood Pressure 132/94 H 09/07/25 18:25 Pulse Oximetry 98 09/07/25 18:25 Oxygen Delivery Room Air 09/07/25 18:25 [facility] Narrative Medical decision making narrative: Rapid COVID and flu were negative. Likely viral etiology. Will give patient Medrol Dosepak. Discussed supportive care. Discussed physical exam findings. Advised supportive measures and signs/symptoms to go to the ER. Pt is appropriate for outpt treatment and f/u. Differential Diagnosis Differential Diagnosis: Differential diagnostic considerations for upper respiratory infection include upper respiratory infection, croup, otitis media, sinusitis, viral infection, bronchitis, influenza, pharyngitis, strep, uvulitis, gastroenteritis. Lab Data [facility] Lab Attestation statement: I personally reviewed the patient's lab results. Labs: Lab Results 09/07/25 Range/Units 18:36 POC Influenza A Ag Negative (Negative) POC Influenza B Ag Negative (Negative) POC SARS CoV-2 Ag Negative (Negative) Critical Care Time Critical Care Time Critical Care Time: No Discharge Plan Discharge Clinical Impression: Upper respiratory infection Qualifiers: URI type: unspecified viral URI Qualified Code(s): J06.9 - Acute upper respiratory infection, unspecified Patient Disposition: Home Condition: Stable Instructions: Antibiotic Form, Upper Respiratory Infection (ED) Additional Instructions: Viral illness may last between 7-10 days; antibiotics do not cure viral illness and are NOT recommended at this time. Take the Medrol Dosepak as directed. Recommend antihistamine Zyrtec or Claritin as needed for congestion. Cough syrup may cause drowsiness; avoid driving or take it at night time. Also, recommend symptomatic treatment includes: rest, fluids, and increase humidity of the air at home. You may take ibuprofen 600 mg to 800 mg every 6-8 hours. Do not exceed more than 800 mg of ibuprofen per dose. Do not exceed more than 3200 mg ibuprofen in a day. You may take up to 1000 mg Tylenol every 6-8 hours. Do not exceed 1000 mg per dose, do exceed more than 4000 mg of Tylenol in a day. Please schedule a follow-up visit with your personal physician for further evaluation and treatment within 3-5days. Develops severe chest pains, difficulty breathing, uncontrolled fevers, severe weakness, unresponsive uncontrollable vomiting, or any serious concerns please go to the ER immediately. Patient Language: Niuean Prescriptions: New methylprednisolone 4 mg tablets,dose pack See Rx Instructions .ROUTE .COMPLEX Qty: 21 0RF Rx Instructions: for 6 days Follow-up/Referrals: Mandie,AMARJIT Turpin [Primary Care Provider] Time of Disposition: 18:58
== END 2025-09-07 19:03 | disposition home or self-care (01) ==
PROVIDERS: PCP Physician Assistant
DX: J06.9 Acute upper respiratory infection, unspecified (principal); Z20.822 Contact with and (suspected) exposure to COVID-19; F17.210 Nicotine dependence, cigarettes, uncomplicated; Z85.819 Personal history of malignant neoplasm of unspecified site of lip, oral cavity, and pharynx
CPT/HCPCS: 87426; 87804; 99213; G0463